=== PATIENT | female | born 1965 | race Caucasian/White ===

== ENCOUNTER 2017-10-08 13:12 | Emergency (ER) | payer MEDICAID ==
[~2017-10-08] VITALS: Ht 175.3 cm; Wt 96.0 kg
[~2017-10-08 13:12] MED LIST: ALBU18HF2 IH; ALBU6.7H INH; ALBU8HFA PO; ANTI14DR2 OT; BAC10T PO; BENA1TAB13; BENA1TAB2 PO; CEPH-572 PO; CLIN300C85 PO; CYCL-1 PO; CYCL-35 PO; DIAZ5TAB PO; DICY10CA88 PO; EPIN0.3A2; EPIN0.3P17 IM; GUAI120015 PO; HYDR-569 PO; IBUP-1051 PO; IBUP-1986 PO; LORA0.5T PO; METH-360 PO; NABU500T2 PO; NAPR-1154 PO; NITR100C6 PO; NORCO10T PO; ROBDML PO; TRAZ-91 PO; ZOL50T PO
[2017-10-08 13:16] VITALS: BP 137/83
[2017-10-08] MEDS ORDERED: MELO-102 PO (14:40)
[2017-10-08] MEDS ORDERED: ACET-2971 PO (14:40)
== END 2017-10-08 15:10 | disposition home or self-care (01) ==
LOC: ER 13:12
DX: M25.562 Pain in left knee (principal); E11.42 Type 2 diabetes mellitus with diabetic polyneuropathy; I10 Essential (primary) hypertension; G89.29 Other chronic pain; F12.90 Cannabis use, unspecified, uncomplicated; Z59.0 Homelessness; Z88.2 Allergy status to sulfonamides; Z88.8 Allergy status to other drugs, medicaments and biological substances; Z91.018 Allergy to other foods; Z79.899 Other long term (current) drug therapy; Z90.89 Acquired absence of other organs
CPT/HCPCS: 73564; 99284

== ENCOUNTER 2017-11-03 13:40 | Emergency (ER) | payer MEDICAID ==
[~2017-11-03] VITALS: Ht 172.7 cm; Wt 95.5 kg
[~2017-11-03 13:40] MED LIST changes: +ACET-2971 PO; +MELO-102 PO
[2017-11-03] MEDS ORDERED: CYCL-1 PO (15:24)
[2017-11-03 15:53] VITALS: BP 120/84
== END 2017-11-03 15:55 | disposition home or self-care (01) ==
LOC: ER 13:41
DX: S16.1XXA Strain of muscle, fascia and tendon at neck level, initial encounter (principal); M54.5 Low back pain; I10 Essential (primary) hypertension; E11.42 Type 2 diabetes mellitus with diabetic polyneuropathy; G89.29 Other chronic pain; F12.90 Cannabis use, unspecified, uncomplicated; Z90.89 Acquired absence of other organs; Z98.890 Other specified postprocedural states; Z88.2 Allergy status to sulfonamides; Z88.5 Allergy status to narcotic agent; Z91.018 Allergy to other foods; Z88.8 Allergy status to other drugs, medicaments and biological substances; Z88.1 Allergy status to other antibiotic agents; Z79.899 Other long term (current) drug therapy; Z59.0 Homelessness; W18.30XA Fall on same level, unspecified, initial encounter; Y93.89 Activity, other specified; Y92.89 Other specified places as the place of occurrence of the external cause; Y99.8 Other external cause status
CPT/HCPCS: 72040; 72100; 99284

== ENCOUNTER 2018-02-05 13:36 | Emergency (ER) | payer MEDICAID ==
[~2018-02-05] VITALS: Ht 175.3 cm; Wt 95.5 kg
[~2018-02-05 13:36] MED LIST changes: +HYDR-4383 PO; -HYDR-569 PO
[2018-02-05 13:39] VITALS: BP 147/83
[2018-02-05] MEDS ORDERED: ipratropium/albuterol 3ml nebule NEB ONE (13:55)
[2018-02-05] MEDS ORDERED: FLUT1AER INH (15:07)
[2018-02-05] MEDS ORDERED: ALBU8.5H8 IH (15:07)
== END 2018-02-05 15:16 | disposition home or self-care (01) ==
LOC: ER 13:37
DX: R06.2 Wheezing (principal); F17.200 Nicotine dependence, unspecified, uncomplicated; I10 Essential (primary) hypertension; G89.29 Other chronic pain; F12.90 Cannabis use, unspecified, uncomplicated; E11.42 Type 2 diabetes mellitus with diabetic polyneuropathy; Z88.2 Allergy status to sulfonamides; Z98.890 Other specified postprocedural states; Z59.0 Homelessness; Z88.1 Allergy status to other antibiotic agents; Z88.5 Allergy status to narcotic agent; Z91.018 Allergy to other foods; Z88.8 Allergy status to other drugs, medicaments and biological substances; Z79.2 Long term (current) use of antibiotics; Z79.899 Other long term (current) drug therapy
CPT/HCPCS: 93005; 94640; 94760; 99283

== ENCOUNTER 2018-03-26 13:08 | Emergency (ER) | payer MEDICAID ==
[~2018-03-26] VITALS: Ht 175.3 cm; Wt 100.0 kg
[~2018-03-26 13:08] MED LIST changes: +ALBU8.5H8 IH; +FLUT1AER INH
[2018-03-26 13:10] VITALS: BP 131/73
[2018-03-26] MEDS ORDERED: ketorolac trometh inj. 60 MG/2 ML VIAL IM ONE (14:30)
== END 2018-03-26 14:44 | disposition home or self-care (01) ==
LOC: ER 13:08
DX: M77.11 Lateral epicondylitis, right elbow (principal); I10 Essential (primary) hypertension; G89.29 Other chronic pain; F41.9 Anxiety disorder, unspecified; F32.9 Major depressive disorder, single episode, unspecified; E11.40 Type 2 diabetes mellitus with diabetic neuropathy, unspecified; F12.10 Cannabis abuse, uncomplicated; Z59.0 Homelessness; Z87.440 Personal history of urinary (tract) infections; Z88.2 Allergy status to sulfonamides; Z88.5 Allergy status to narcotic agent; Z88.1 Allergy status to other antibiotic agents; Z91.018 Allergy to other foods
CPT/HCPCS: 73080; 96372; 99283; J1885

== ENCOUNTER 2018-06-07 11:43 | Emergency (ER) | payer MEDICAID ==
[~2018-06-07] VITALS: Ht 175.3 cm; Wt 100.0 kg
[~2018-06-07 11:43] MED LIST changes: +CLIN-96 PO; -CLIN300C85 PO
[2018-06-07 12:35] VITALS: BP 145/85
[2018-06-07] MEDS ORDERED: OMEP40CA37 PO (12:49)
[2018-06-07] MEDS ORDERED: CYCL-1 PO (12:49)
[2018-06-07] MEDS ORDERED: TRAM50TA2 PO (12:49)
[2018-06-07] MEDS ORDERED: ketorolac trometh inj. 60 MG/2 ML VIAL IM ONE (12:50)
[2018-06-07] MEDS ORDERED: cyclobenzaprine 10mg tablet PO ONE (12:50)
== END 2018-06-07 13:37 | disposition home or self-care (01) ==
LOC: ER 11:43
DX: M54.2 Cervicalgia (principal); E11.42 Type 2 diabetes mellitus with diabetic polyneuropathy; I10 Essential (primary) hypertension; G89.29 Other chronic pain; F12.90 Cannabis use, unspecified, uncomplicated; Z90.89 Acquired absence of other organs; Z98.890 Other specified postprocedural states; Z88.2 Allergy status to sulfonamides; Z88.5 Allergy status to narcotic agent; Z91.018 Allergy to other foods; Z88.6 Allergy status to analgesic agent; Z88.1 Allergy status to other antibiotic agents; Z88.8 Allergy status to other drugs, medicaments and biological substances; Z79.899 Other long term (current) drug therapy; Z59.0 Homelessness; X50.1XXA Overexertion from prolonged static or awkward postures, initial encounter; Y93.89 Activity, other specified; Y92.89 Other specified places as the place of occurrence of the external cause; Y99.8 Other external cause status
CPT/HCPCS: 93005; 96372; 99283; J1885

== ENCOUNTER 2018-11-26 11:56 | Emergency (ER) | payer MEDICAID ==
[~2018-11-26] VITALS: Ht 175.3 cm; Wt 96.3 kg
[~2018-11-26 11:56] MED LIST changes: -ALBU6.7H INH; +ALBU6.7H9 INH; +SERT-153 PO; -ZOL50T PO
[2018-11-26 12:02] VITALS: BP 118/69
[2018-11-26] MEDS ORDERED: LORazepam 2 mg/ml vial IM ONE (12:25)
== END 2018-11-26 13:02 | disposition home or self-care (01) ==
LOC: ER 11:57
DX: F41.9 Anxiety disorder, unspecified (principal); E11.21 Type 2 diabetes mellitus with diabetic nephropathy; I10 Essential (primary) hypertension; G89.29 Other chronic pain; F32.9 Major depressive disorder, single episode, unspecified; F43.10 Post-traumatic stress disorder, unspecified; F12.90 Cannabis use, unspecified, uncomplicated; F10.99 Alcohol use, unspecified with unspecified alcohol-induced disorder; Z98.890 Other specified postprocedural states; Z90.89 Acquired absence of other organs; Z91.018 Allergy to other foods; Z88.2 Allergy status to sulfonamides; Z88.5 Allergy status to narcotic agent; Z88.8 Allergy status to other drugs, medicaments and biological substances; Z88.1 Allergy status to other antibiotic agents; Z79.899 Other long term (current) drug therapy; Y90.9 Presence of alcohol in blood, level not specified
CPT/HCPCS: 96372; 99284; J2060

== ENCOUNTER 2019-02-10 12:39 | Emergency (ER) | payer MEDICAID ==
[~2019-02-10] VITALS: Ht 175.3 cm; Wt 96.0 kg
[~2019-02-10 12:39] MED LIST changes: +CLIN-90 PO; -CLIN-96 PO
[2019-02-10 12:44] VITALS: BP 95/63
[2019-02-10] MEDS ORDERED: ketorolac tromethamine 15mg/ml inj. IM ONE (13:50)
[2019-02-10] MEDS ORDERED: CYCL-1 PO (14:00)
[2019-02-10] MEDS ORDERED: IBUP-1984 PO (14:00)
== END 2019-02-10 14:09 | disposition home or self-care (01) ==
LOC: ER 12:40
DX: M54.5 Low back pain (principal); I10 Essential (primary) hypertension; G89.29 Other chronic pain; E11.42 Type 2 diabetes mellitus with diabetic polyneuropathy; F12.90 Cannabis use, unspecified, uncomplicated; Z90.89 Acquired absence of other organs; Z98.890 Other specified postprocedural states; Z91.018 Allergy to other foods; Z88.2 Allergy status to sulfonamides; Z88.5 Allergy status to narcotic agent; Z88.6 Allergy status to analgesic agent; Z88.1 Allergy status to other antibiotic agents
CPT/HCPCS: 96372; 99283; J1885

== ENCOUNTER 2019-02-28 13:06 | Emergency (ER) | payer MEDICAID ==
[~2019-02-28] VITALS: Ht 175.3 cm; Wt 96.0 kg
[2019-02-28 13:19] VITALS: BP 123/67
[2019-02-28] MEDS ORDERED: ketorolac tromethamine 15mg/ml inj. IM ONE (13:55)
[2019-02-28] MEDS ORDERED: IBUP-1984 PO (14:11)
[2019-02-28] MEDS ORDERED: CYCL-1 PO (14:11)
== END 2019-02-28 14:30 | disposition home or self-care (01) ==
LOC: ER 13:07
DX: M54.5 Low back pain (principal); E11.42 Type 2 diabetes mellitus with diabetic polyneuropathy; I10 Essential (primary) hypertension; G89.29 Other chronic pain; F41.9 Anxiety disorder, unspecified; F32.9 Major depressive disorder, single episode, unspecified; F12.90 Cannabis use, unspecified, uncomplicated; Z98.890 Other specified postprocedural states; Z91.018 Allergy to other foods; Z88.2 Allergy status to sulfonamides; Z88.5 Allergy status to narcotic agent; Z88.1 Allergy status to other antibiotic agents; Z88.8 Allergy status to other drugs, medicaments and biological substances; Z79.2 Long term (current) use of antibiotics; Z79.899 Other long term (current) drug therapy
CPT/HCPCS: 96372; 99283; J1885

== ENCOUNTER 2019-03-27 11:12 | Emergency (ER) | payer MEDICAID ==
[~2019-03-27] VITALS: Ht 175.3 cm; Wt 95.5 kg
[2019-03-27 11:26] VITALS: BP 116/64
[2019-03-27] MEDS ORDERED: ketorolac tromethamine 15mg/ml inj. IM ONE (12:40)
== END 2019-03-27 13:07 | disposition home or self-care (01) ==
LOC: ER 11:12
DX: S92.811A Other fracture of right foot, initial encounter for closed fracture (principal); I10 Essential (primary) hypertension; E11.42 Type 2 diabetes mellitus with diabetic polyneuropathy; G89.29 Other chronic pain; F41.9 Anxiety disorder, unspecified; F32.9 Major depressive disorder, single episode, unspecified; F10.99 Alcohol use, unspecified with unspecified alcohol-induced disorder; F12.90 Cannabis use, unspecified, uncomplicated; Z98.890 Other specified postprocedural states; Z90.89 Acquired absence of other organs; Z88.2 Allergy status to sulfonamides; Z88.5 Allergy status to narcotic agent; Z88.1 Allergy status to other antibiotic agents; Z88.6 Allergy status to analgesic agent; Z88.8 Allergy status to other drugs, medicaments and biological substances; Z91.018 Allergy to other foods; Z79.899 Other long term (current) drug therapy; X58.XXXA Exposure to other specified factors, initial encounter; Y93.89 Activity, other specified; Y92.89 Other specified places as the place of occurrence of the external cause; Y99.8 Other external cause status; Y90.9 Presence of alcohol in blood, level not specified
CPT/HCPCS: 73630; 96372; 99283; J1885

== ENCOUNTER 2019-09-01 13:10 | Emergency (ER) | payer MEDICAID ==
[~2019-09-01] VITALS: Ht 175.3 cm; Wt 101.0 kg
[~2019-09-01 13:10] MED LIST changes: -CLIN-90 PO; +CLIN-97 PO
[2019-09-01 13:46] LABS: BASOPHILS # (AUTO) 0.1 X10'3 (0-0.2); BASOPHILS % (AUTO) 0.6 % (0-1); EOSINOPHILS # (AUTO) 0.3 X10'3 (0-0.9); EOSINOPHILS % (AUTO) 3.4 % (0-6); HEMATOCRIT 42.7 % (35.0-45.0); HEMOGLOBIN 14.5 g/dl (12.0-16.0); LYMPHOCYTES # (AUTO) 2.7 X10'3 (1.1-4.8); LYMPHOCYTES % (AUTO) 33.8 % (21-51); MEAN CORPUSCULAR HEMOGLOBIN 31.5 PG (27.0-31.0); MEAN CORPUSCULAR HGB CONC 33.9 g/dL (33.0-36.5); MEAN CORPUSCULAR VOLUME 92.9 FL (78-98); MEAN PLATELET VOLUME 8.9 FL (7.4-10.4); MONOCYTES # (AUTO) 0.6 X10'3 (0-0.9); MONOCYTES % (AUTO) 7.1 % (2-12); NEUTROPHILS # (AUTO) 4.4 X10'3 (1.8-7.7); NEUTROPHILS % (AUTO) 55.1 % (42-75); PLATELET COUNT 225 X10'3 (140-440); RED CELL DISTRIBUTION WIDTH 13.9 % (11.5-14.5); WHITE BLOOD COUNT 8.1 X10'3 (4.5-11.0)
[2019-09-01 14:00] LABS: ALANINE AMINOTRANSFERASE 55 U/L (12-78); ALBUMIN 3.8 G/DL (3.4-5.0); ALKALINE PHOSPHATASE 78 IU/L (46-116); ANION GAP 8 (8-16); ASPARTATE AMINO TRANSFERASE 32 U/L (10-37); BILIRUBIN,TOTAL 0.4 MG/DL (0.1-1.0); BLOOD UREA NITROGEN 9 MG/DL (7-18); BUN/CREATININE RATIO 8.5 (6.6-38.0); CALCIUM 9.1 MG/DL (8.5-10.1); CHLORIDE 104 MMOL/L (99-107); CREATININE 1.06 MG/DL (0.40-0.90); GLUCOSE 129 MG/DL (70-104); LIPASE 121 U/L (73-393); POTASSIUM 4.2 MMOL/L (3.5-5.1); SODIUM 140 MMOL/L (135-145); TOTAL CARBON DIOXIDE 27.6 MMOL/L (24-32); TOTAL PROTEIN 7.5 G/DL (6.4-8.2); eGFR 54 ML/MIN
[2019-09-01 14:56] LABS: CLARITY,URINE CLEAR (Clear); COLOR,URINE STRAW (Yellow); GLUCOSE, URINE NEGATIVE (Neg); KETONES,URINE NEGATIVE (Neg); LEUKOCYTE ESTERASE ,URINE TRACE (Neg); NITRITES, URINE NEGATIVE (Neg); OCCULT BLOOD,URINE NEGATIVE (Neg); PROTEIN,URINE NEGATIVE (Neg); URINE HCG NEGATIVE (NEG); UROBILINOGEN,URINE 0.2 E.U/dL (0.2-1.0)
[2019-09-01 14:57] LABS: UA COLLECTION TYPE CLN CATCH MIDSTREAM
[2019-09-01 15:03] LABS: RBC,URINE NONE SEEN /HPF (0-2); WBC,URINE 0-4 /HPF (0-4)
[2019-09-01 15:04] LABS: BACTERIA,URINE FEW /HPF (Neg); MUCUS STRANDS NONE SEEN /LPF (Neg); SQUAMOUS EPITHELIAL CELL,UR MODERATE /LPF (FEW)
[2019-09-01 16:01] VITALS: BP 134/80
== END 2019-09-01 16:03 | disposition home or self-care (01) ==
LOC: ER 13:11
DX: R10.32 Left lower quadrant pain (principal); R11.0 Nausea; E11.42 Type 2 diabetes mellitus with diabetic polyneuropathy; I10 Essential (primary) hypertension; G89.29 Other chronic pain; F41.9 Anxiety disorder, unspecified; F32.9 Major depressive disorder, single episode, unspecified; F17.200 Nicotine dependence, unspecified, uncomplicated; F12.90 Cannabis use, unspecified, uncomplicated; Z87.01 Personal history of pneumonia (recurrent); Z87.440 Personal history of urinary (tract) infections; Z90.89 Acquired absence of other organs; Z88.6 Allergy status to analgesic agent; Z88.1 Allergy status to other antibiotic agents; Z88.5 Allergy status to narcotic agent; Z88.2 Allergy status to sulfonamides; Z91.018 Allergy to other foods; Z79.2 Long term (current) use of antibiotics; Z79.899 Other long term (current) drug therapy
CPT/HCPCS: 36415; 74176; 80053; 81001; 81025; 83690; 85025; 87088; 99284

== ENCOUNTER 2019-12-04 11:14 | Emergency (ER) | payer MEDICAID ==
[~2019-12-04] VITALS: Ht 175.3 cm; Wt 96.0 kg
[2019-12-04] MEDS ORDERED: ketorolac trometh inj. 60 MG/2 ML VIAL IM ONE (13:00)
[2019-12-04] MEDS ORDERED: DICL100G15 TOP (13:32)
[2019-12-04] MEDS ORDERED: CYCL-1 PO (13:32)
[2019-12-04 13:46] VITALS: BP 118/79
== END 2019-12-04 13:48 | disposition home or self-care (01) ==
LOC: ER 11:15
DX: M75.31 Calcific tendinitis of right shoulder (principal); E11.42 Type 2 diabetes mellitus with diabetic polyneuropathy; I10 Essential (primary) hypertension; G89.29 Other chronic pain; F41.9 Anxiety disorder, unspecified; F32.9 Major depressive disorder, single episode, unspecified; F12.90 Cannabis use, unspecified, uncomplicated; Z90.89 Acquired absence of other organs; Z98.890 Other specified postprocedural states; Z91.018 Allergy to other foods; Z88.2 Allergy status to sulfonamides; Z88.5 Allergy status to narcotic agent; Z88.1 Allergy status to other antibiotic agents; Z88.8 Allergy status to other drugs, medicaments and biological substances; Z79.899 Other long term (current) drug therapy; X50.1XXA Overexertion from prolonged static or awkward postures, initial encounter; Y93.89 Activity, other specified; Y92.89 Other specified places as the place of occurrence of the external cause; Y99.8 Other external cause status
CPT/HCPCS: 73030; 93005; 96372; 99283; J1885

== ENCOUNTER 2020-12-17 19:31 | Emergency (ER) | payer MEDICAID ==
[~2020-12-17 19:31] MED LIST changes: +ALBU8.5H17 IH; -ALBU8.5H8 IH; +DICL100G15 TOP; +NABU-139 PO; -NABU500T2 PO
[2020-12-18] MEDS ORDERED: ONDA4TAB12 PO (22:22)
== END 2020-12-17 20:55 | disposition left against medical advice (07) ==
LOC: ER 19:32
DX: N23 Unspecified renal colic (principal); Z53.21 Procedure and treatment not carried out due to patient leaving prior to being seen by health care provider

== ENCOUNTER 2020-12-18 19:41 | Emergency (ER) | payer MEDICAID ==
[~2020-12-18] VITALS: Ht 175.3 cm; Wt 103.6 kg
[2020-12-18 20:39] VITALS: BP 164/103
[2020-12-18 20:39] LABS: BASOPHILS % (AUTO) 0.2 % (0-1); EOSINOPHILS # (AUTO) 0.1 X10'3 (0-0.9); EOSINOPHILS % (AUTO) 1.3 % (0-6); HEMATOCRIT 42.9 % (35.0-45.0); HEMOGLOBIN 14.9 g/dl (12.0-16.0); LYMPHOCYTES # (AUTO) 1.6 X10'3 (1.1-4.8); LYMPHOCYTES % (AUTO) 17.9 % (21-51); MEAN CORPUSCULAR HEMOGLOBIN 32.4 PG (27.0-31.0); MEAN CORPUSCULAR HGB CONC 34.8 g/dL (33.0-36.5); MEAN CORPUSCULAR VOLUME 92.9 FL (78-98); MONOCYTES # (AUTO) 0.7 X10'3 (0-0.9); MONOCYTES % (AUTO) 7.5 % (2-12); NEUTROPHILS # (AUTO) 6.3 X10'3 (1.8-7.7); NEUTROPHILS % (AUTO) 73.1 % (42-75); PLATELET COUNT 249 X10'3 (140-440); RED BLOOD COUNT 4.61 X10'6 (4.20-5.60); WHITE BLOOD COUNT 8.7 X10'3 (4.5-11.0)
[2020-12-18 20:49] LABS: URINE HCG NEGATIVE (NEG)
[2020-12-18 20:57] LABS: ALANINE AMINOTRANSFERASE 73 U/L (12-78); ALBUMIN 3.9 G/DL (3.4-5.0); ALKALINE PHOSPHATASE 81 IU/L (46-116); ANION GAP 9 (8-16); ASPARTATE AMINO TRANSFERASE 42 U/L (10-37); BILIRUBIN,TOTAL 0.9 MG/DL (0.1-1.0); BLOOD UREA NITROGEN 8 MG/DL (7-18); BUN/CREATININE RATIO 8.1 (6.6-38.0); CHLORIDE 89 MMOL/L (99-107); CREATININE 0.99 MG/DL (0.40-0.90); GLUCOSE 141 MG/DL (70-104); LIPASE 59 U/L (73-393); POTASSIUM 3.6 MMOL/L (3.5-5.1); SODIUM 125 MMOL/L (135-145); TOTAL CARBON DIOXIDE 27.1 MMOL/L (24-32); TOTAL PROTEIN 7.9 G/DL (6.4-8.2); eGFR 58 ML/MIN
[2020-12-18 21:12] LABS: CLARITY,URINE SLIGHTLY CLOUDY (Clear); COLOR,URINE YELLOW (Yellow); GLUCOSE, URINE NEGATIVE (Neg); KETONES,URINE 80 mg/dl (Neg); OCCULT BLOOD,URINE NEGATIVE (Neg); PROTEIN,URINE NEGATIVE (Neg); UA COLLECTION TYPE CLN CATCH MIDSTREAM
[2020-12-18 21:13] LABS: LEUKOCYTE ESTERASE ,URINE NEGATIVE (Neg); NITRITES, URINE NEGATIVE (Neg); UROBILINOGEN,URINE 0.2 E.U/dL (0.2-1.0); WBC,URINE 0-4 /HPF (0-4)
[2020-12-18 21:14] LABS: BACTERIA,URINE FEW /HPF (Neg); RBC,URINE 0-2 /HPF (0-2); SQUAMOUS EPITHELIAL CELL,UR MANY /LPF (FEW)
[2020-12-18] MEDS ORDERED: normal saline 1000ML IV soln IVB ONE (21:25)
[2020-12-18] MEDS ORDERED: ondansetron/PF 4mg/2ml inj IV ONE (21:25)
[2020-12-18] MEDS ORDERED: ONDA4TAB12 PO (22:22)
== END 2020-12-18 23:18 | disposition home or self-care (01) ==
LOC: ER 19:42
DX: N23 Unspecified renal colic (principal); E86.0 Dehydration; R11.2 Nausea with vomiting, unspecified; E11.42 Type 2 diabetes mellitus with diabetic polyneuropathy; I10 Essential (primary) hypertension; G89.29 Other chronic pain; F41.9 Anxiety disorder, unspecified; F32.9 Major depressive disorder, single episode, unspecified; F12.90 Cannabis use, unspecified, uncomplicated; F15.90 Other stimulant use, unspecified, uncomplicated; Z87.01 Personal history of pneumonia (recurrent); Z87.440 Personal history of urinary (tract) infections; Z90.89 Acquired absence of other organs; Z98.890 Other specified postprocedural states; Z91.018 Allergy to other foods; Z88.2 Allergy status to sulfonamides; Z88.1 Allergy status to other antibiotic agents; Z88.8 Allergy status to other drugs, medicaments and biological substances; Z88.5 Allergy status to narcotic agent; Z79.899 Other long term (current) drug therapy; Z79.2 Long term (current) use of antibiotics
CPT/HCPCS: 36415; 74176; 80053; 81001; 81025; 83690; 85025; 96374; 99284; J2405; J7030

== ENCOUNTER 2021-03-17 12:29 | Emergency (ER) | payer MEDICAID ==
[~2021-03-17] VITALS: Ht 175.3 cm; Wt 104.5 kg
[~2021-03-17 12:29] MED LIST changes: -BENA1TAB13; +BENA1TAB86; +ONDA4TAB12 PO
[2021-03-17 13:15] VITALS: BP 105/65
[2021-03-17] MEDS ORDERED: ketorolac trometh. 30mg/ml inj. IM ONE (16:50)
== END 2021-03-17 17:15 | disposition home or self-care (01) ==
LOC: ER 12:30
DX: M79.672 Pain in left foot (principal); R07.89 Other chest pain; G89.29 Other chronic pain; E11.42 Type 2 diabetes mellitus with diabetic polyneuropathy; I10 Essential (primary) hypertension; F41.9 Anxiety disorder, unspecified; F32.9 Major depressive disorder, single episode, unspecified; F12.90 Cannabis use, unspecified, uncomplicated; F15.90 Other stimulant use, unspecified, uncomplicated; Z87.01 Personal history of pneumonia (recurrent); Z87.440 Personal history of urinary (tract) infections; Z90.89 Acquired absence of other organs; Z98.890 Other specified postprocedural states; Z88.5 Allergy status to narcotic agent; Z88.2 Allergy status to sulfonamides; Z88.8 Allergy status to other drugs, medicaments and biological substances; Z88.6 Allergy status to analgesic agent; Z91.018 Allergy to other foods; Z79.2 Long term (current) use of antibiotics; Z79.899 Other long term (current) drug therapy
CPT/HCPCS: 73630; 84484; 93005; 96372; 99285; J1885

== ENCOUNTER 2021-06-19 20:14 | Emergency (ER) | payer MEDICAID ==
[~2021-06-19] VITALS: Ht 175.3 cm; Wt 105.5 kg
[2021-06-19 20:29] VITALS: BP 147/92
[2021-06-19] MEDS ORDERED: orphenadrine citrate 60mg/2ml inj. IM ONE (21:30)
[2021-06-19] MEDS ORDERED: ketorolac trometh. 30mg/ml inj. IM ONE (21:30)
--- NOTE | 2021-06-19 21:47 | NUR ---
TORLASHAWN VERFIFIED WITH DAMION LABOY.
[2021-06-19] MEDS ORDERED: CYCL-1 PO (22:10)
== END 2021-06-19 22:23 | disposition home or self-care (01) ==
LOC: ER 20:15
DX: S30.811A Abrasion of abdominal wall, initial encounter (principal); R07.81 Pleurodynia; I10 Essential (primary) hypertension; E11.9 Type 2 diabetes mellitus without complications; G89.29 Other chronic pain; F41.9 Anxiety disorder, unspecified; F32.A Depression, unspecified; F12.90 Cannabis use, unspecified, uncomplicated; F15.90 Other stimulant use, unspecified, uncomplicated; Z87.01 Personal history of pneumonia (recurrent); Z87.440 Personal history of urinary (tract) infections; Z90.89 Acquired absence of other organs; Z98.890 Other specified postprocedural states; Z88.2 Allergy status to sulfonamides; Z88.5 Allergy status to narcotic agent; Z88.1 Allergy status to other antibiotic agents; Z88.6 Allergy status to analgesic agent; Z88.8 Allergy status to other drugs, medicaments and biological substances; Z79.2 Long term (current) use of antibiotics; Z79.899 Other long term (current) drug therapy; W19.XXXA Unspecified fall, initial encounter; Y93.89 Activity, other specified; Y92.89 Other specified places as the place of occurrence of the external cause; Y99.8 Other external cause status
CPT/HCPCS: 71046; 96372; 99284; J1885; J2360

== ENCOUNTER → 2021-07-26 | Emergency (ER) | payer MEDICAID ==
[~2021-07-26] VITALS: Ht 175.3 cm; Wt 104.5 kg
[~2021-07-26] MED LIST changes: +AMOX-100 PO; +acetaminophen 325mg tablet PO ONE; +amoxicillin 250mg capsule PO ONE
[2021-07-26 16:28] VITALS: BP 161/79
== END | disposition home or self-care (01) ==
LOC: ER 16:27
DX: K08.89 Other specified disorders of teeth and supporting structures (principal); R50.9 Fever, unspecified; K04.7 Periapical abscess without sinus; R59.9 Enlarged lymph nodes, unspecified; E11.43 Type 2 diabetes mellitus with diabetic autonomic (poly)neuropathy; I10 Essential (primary) hypertension; G89.29 Other chronic pain; F12.90 Cannabis use, unspecified, uncomplicated; F15.90 Other stimulant use, unspecified, uncomplicated; Z87.01 Personal history of pneumonia (recurrent); Z87.440 Personal history of urinary (tract) infections; Z88.2 Allergy status to sulfonamides; Z88.1 Allergy status to other antibiotic agents; Z88.8 Allergy status to other drugs, medicaments and biological substances; Z91.018 Allergy to other foods; Z79.2 Long term (current) use of antibiotics; Z79.899 Other long term (current) drug therapy
CPT/HCPCS: 99283

== ENCOUNTER 2022-04-18 07:29 | Emergency (ER) | payer MEDICAID ==
[~2022-04-18] VITALS: Ht 175.3 cm; Wt 100.0 kg
[~2022-04-18 07:29] MED LIST changes: +ALBU6.7H14 INH; -ALBU6.7H9 INH; -AMOX-100 PO; -acetaminophen 325mg tablet PO ONE; -amoxicillin 250mg capsule PO ONE
[2022-04-18] MEDS ORDERED: AMIT50TA15 PO (08:54)
[2022-04-18] MEDS ORDERED: ORPH100T2 PO (08:54)
[2022-04-18] MEDS ORDERED: orphenadrine citrate 60mg/2ml inj. IM ONE (08:55)
[2022-04-18] MEDS ORDERED: ketorolac trometh inj. 60 MG/2 ML VIAL IM ONE (08:55)
[2022-04-18 09:31] VITALS: BP 155/70
== END 2022-04-18 09:33 | disposition home or self-care (01) ==
LOC: ER 07:30
DX: M54.42 Lumbago with sciatica, left side (principal); M54.41 Lumbago with sciatica, right side; G89.29 Other chronic pain; R25.2 Cramp and spasm; E11.42 Type 2 diabetes mellitus with diabetic polyneuropathy; I10 Essential (primary) hypertension; F41.9 Anxiety disorder, unspecified; F32.A Depression, unspecified; F12.90 Cannabis use, unspecified, uncomplicated; F15.90 Other stimulant use, unspecified, uncomplicated; Z87.01 Personal history of pneumonia (recurrent); Z87.440 Personal history of urinary (tract) infections; Z88.2 Allergy status to sulfonamides; Z88.5 Allergy status to narcotic agent; Z88.0 Allergy status to penicillin; Z88.8 Allergy status to other drugs, medicaments and biological substances; Z79.2 Long term (current) use of antibiotics; Z79.899 Other long term (current) drug therapy
CPT/HCPCS: 96372; 99284; J1885; J2360

== ENCOUNTER 2022-04-27 14:53 | Emergency (ER) | payer MEDICAID ==
[~2022-04-27] VITALS: Ht 175.3 cm; Wt 100.0 kg
[~2022-04-27 14:53] MED LIST changes: +ORPH100T2 PO
[2022-04-27 15:25] VITALS: BP 168/97
[2022-04-27] MEDS ORDERED: ketorolac trometh. 30mg/ml inj. IV ONE ×2 (17:10→17:15)
[2022-04-27] MEDS ORDERED: orphenadrine citrate 60mg/2ml inj. IM ONE (17:10)
[2022-04-27] MEDS ORDERED: BACL-11 PO (17:23)
[2022-04-27] MEDS ORDERED: AMIT50TA15 PO (17:23)
[2022-04-27] MEDS ORDERED: ketorolac trometh. 30mg/ml inj. IM ONE (17:35)
== END 2022-04-27 18:07 | disposition home or self-care (01) ==
LOC: ER 14:54
DX: M54.50 Low back pain, unspecified (principal); I10 Essential (primary) hypertension; J20.9 Acute bronchitis, unspecified; E11.9 Type 2 diabetes mellitus without complications; G89.29 Other chronic pain; F12.90 Cannabis use, unspecified, uncomplicated; F15.20 Other stimulant dependence, uncomplicated; Z91.018 Allergy to other foods; Z88.2 Allergy status to sulfonamides; Z88.1 Allergy status to other antibiotic agents; Z88.0 Allergy status to penicillin; Z88.5 Allergy status to narcotic agent; Z91.041 Radiographic dye allergy status; Z88.4 Allergy status to anesthetic agent
CPT/HCPCS: 96372; 99283; J1885

== ENCOUNTER 2022-05-07 09:00 | Emergency (ER) | payer MEDICAID ==
[~2022-05-07] VITALS: Ht 175.3 cm; Wt 102.3 kg
[~2022-05-07 09:00] MED LIST changes: +BACL-11 PO
[2022-05-07 10:32] LABS: BASOPHILS % (AUTO) 0.6 % (0-1); EOSINOPHILS # (AUTO) 0.3 X10'3 (0-0.9); HEMATOCRIT 40.1 % (35.0-45.0); HEMOGLOBIN 13.7 g/dl (12.0-16.0); LYMPHOCYTES # (AUTO) 2.5 X10'3 (1.1-4.8); LYMPHOCYTES % (AUTO) 37.8 % (21-51); MEAN CORPUSCULAR HEMOGLOBIN 31.5 PG (27.0-31.0); MEAN CORPUSCULAR HGB CONC 34.2 g/dL (33.0-36.5); MEAN PLATELET VOLUME 8.5 FL (7.4-10.4); MONOCYTES # (AUTO) 0.6 X10'3 (0-0.9); MONOCYTES % (AUTO) 9.2 % (2-12); NEUTROPHILS # (AUTO) 3.1 X10'3 (1.8-7.7); NEUTROPHILS % (AUTO) 47.4 % (42-75); PLATELET COUNT 233 X10'3 (140-440); RED BLOOD COUNT 4.36 X10'6 (4.20-5.60); RED CELL DISTRIBUTION WIDTH 13.4 % (11.5-14.5); WHITE BLOOD COUNT 6.5 X10'3 (4.5-11.0)
[2022-05-07 10:40] LABS: ALANINE AMINOTRANSFERASE 32 U/L (12-78); ALBUMIN 3.7 G/DL (3.4-5.0); ALKALINE PHOSPHATASE 83 IU/L (46-116); ANION GAP 6 (8-16); ASPARTATE AMINO TRANSFERASE 17 U/L (10-37); BILIRUBIN,TOTAL 0.4 MG/DL (0.1-1.0); BLOOD UREA NITROGEN 17 MG/DL (7-18); BUN/CREATININE RATIO 17.3 (6.6-38.0); CALCIUM 9.2 MG/DL (8.5-10.1); CHLORIDE 96 MMOL/L (99-107); CREATININE 0.98 MG/DL (0.40-0.90); GLUCOSE 156 MG/DL (70-104); POTASSIUM 4.4 MMOL/L (3.5-5.1); SODIUM 130 MMOL/L (135-145); TOTAL CARBON DIOXIDE 28.2 MMOL/L (24-32); TOTAL PROTEIN 7.3 G/DL (6.4-8.2); eGFR 59 ML/MIN
--- NOTE | 2022-05-07 10:45 | NUR ---
WILLEM FROM MRI CALLED TO INFORM US THAT OUR MRI MACHINE IS DOWN TILL Monday05/10/2022. POSSIBLE TRANSFER TO [facility] FOR MRI.
[2022-05-07 11:51] VITALS: BP 122/80
== END 2022-05-07 12:29 | disposition left against medical advice (07) ==
LOC: ER 09:01
DX: M54.50 Low back pain, unspecified (principal); Z20.822 Contact with and (suspected) exposure to COVID-19; I10 Essential (primary) hypertension; E11.9 Type 2 diabetes mellitus without complications; G89.29 Other chronic pain; F12.90 Cannabis use, unspecified, uncomplicated; F15.20 Other stimulant dependence, uncomplicated; Z91.018 Allergy to other foods; Z88.1 Allergy status to other antibiotic agents; Z88.2 Allergy status to sulfonamides
CPT/HCPCS: 36415; 80053; 85025; 87811; 99283

== ENCOUNTER 2022-08-08 13:55 | Emergency (ER) | payer MEDICAID ==
[~2022-08-08] VITALS: Ht 175.3 cm; Wt 96.0 kg
[~2022-08-08 13:55] MED LIST changes: -ORPH100T2 PO; +ORPH100T4 PO
[2022-08-08 13:59] VITALS: BP 119/71
[2022-08-08 14:23] LABS: CLARITY,URINE CLEAR (Clear); COLOR,URINE STRAW (Yellow); GLUCOSE, URINE NEGATIVE (Neg); KETONES,URINE NEGATIVE (Neg); LEUKOCYTE ESTERASE ,URINE NEGATIVE (Neg); NITRITES, URINE NEGATIVE (Neg); OCCULT BLOOD,URINE NEGATIVE (Neg); PROTEIN,URINE NEGATIVE (Neg); UROBILINOGEN,URINE 0.2 E.U/dL (0.2-1.0)
[2022-08-08 14:25] LABS: UA COLLECTION TYPE CLN CATCH MIDSTREAM
[2022-08-08 14:29] LABS: BASOPHILS # (AUTO) 0.1 X10'3 (0-0.2); BASOPHILS % (AUTO) 0.7 % (0-1); EOSINOPHILS # (AUTO) 0.3 X10'3 (0-0.9); EOSINOPHILS % (AUTO) 3.4 % (0-6); HEMATOCRIT 41.5 % (35.0-45.0); LYMPHOCYTES # (AUTO) 3.6 X10'3 (1.1-4.8); LYMPHOCYTES % (AUTO) 36.7 % (21-51); MEAN CORPUSCULAR HEMOGLOBIN 31.6 PG (27.0-31.0); MEAN CORPUSCULAR HGB CONC 33.8 g/dL (33.0-36.5); MEAN CORPUSCULAR VOLUME 93.6 FL (78-98); MEAN PLATELET VOLUME 8.6 FL (7.4-10.4); MONOCYTES # (AUTO) 0.9 X10'3 (0-0.9); MONOCYTES % (AUTO) 9.4 % (2-12); NEUTROPHILS # (AUTO) 4.8 X10'3 (1.8-7.7); NEUTROPHILS % (AUTO) 49.8 % (42-75); PLATELET COUNT 254 X10'3 (140-440); RED BLOOD COUNT 4.44 X10'6 (4.20-5.60); RED CELL DISTRIBUTION WIDTH 13.5 % (11.5-14.5); WHITE BLOOD COUNT 9.7 X10'3 (4.5-11.0)
[2022-08-08 14:38] LABS: ALANINE AMINOTRANSFERASE 46 U/L (12-78); ALBUMIN 3.7 G/DL (3.4-5.0); ALKALINE PHOSPHATASE 80 IU/L (46-116); ANION GAP 9 (8-16); ASPARTATE AMINO TRANSFERASE 25 U/L (10-37); BILIRUBIN,TOTAL 0.3 MG/DL (0.1-1.0); BLOOD UREA NITROGEN 11 MG/DL (7-18); BUN/CREATININE RATIO 12.2 (10.0-20.0); CALCIUM 9.2 MG/DL (8.5-10.1); CHLORIDE 100 MMOL/L (99-107); GLUCOSE 100 MG/DL (70-104); LIPASE 77 U/L (73-393); POTASSIUM 4.1 MMOL/L (3.5-5.1); SODIUM 137 MMOL/L (135-145); TOTAL CARBON DIOXIDE 27.7 MMOL/L (24-32); TOTAL PROTEIN 7.3 G/DL (6.4-8.2); eGFR 65 ML/MIN
== END 2022-08-08 16:09 | disposition left against medical advice (07) ==
LOC: ER 13:55
DX: R10.9 Unspecified abdominal pain (principal); Z53.21 Procedure and treatment not carried out due to patient leaving prior to being seen by health care provider
CPT/HCPCS: 36415; 80053; 81003; 83690; 85025; 99281

== ENCOUNTER 2022-09-24 11:05 | Emergency (ER) | payer MEDICAID ==
[~2022-09-24] VITALS: Ht 175.3 cm; Wt 88.4 kg
[2022-09-24 11:22] VITALS: BP 170/92
== END 2022-09-24 15:08 | disposition left against medical advice (07) ==
LOC: ER 11:06
DX: R22.31 Localized swelling, mass and lump, right upper limb (principal); Z53.21 Procedure and treatment not carried out due to patient leaving prior to being seen by health care provider
CPT/HCPCS: 99281

== ENCOUNTER 2022-09-29 08:34 | Emergency (ER) | payer MEDICAID ==
[~2022-09-29] VITALS: Ht 175.3 cm; Wt 90.9 kg
[2022-09-29] MEDS ORDERED: dexamethasone sod phosphate 10mg/ml inj IV STA (09:09)
[2022-09-29 09:34] LABS: BASOPHILS % (AUTO) 0.3 % (0-1); EOSINOPHILS # (AUTO) 0.2 X10'3 (0-0.9); EOSINOPHILS % (AUTO) 1.6 % (0-6); HEMATOCRIT 40.8 % (35.0-45.0); HEMOGLOBIN 13.8 g/dl (12.0-16.0); LYMPHOCYTES # (AUTO) 2.8 X10'3 (1.1-4.8); LYMPHOCYTES % (AUTO) 21.1 % (21-51); MEAN CORPUSCULAR HEMOGLOBIN 31.2 PG (27.0-31.0); MEAN CORPUSCULAR HGB CONC 33.9 g/dL (33.0-36.5); MEAN PLATELET VOLUME 8.8 FL (7.4-10.4); MONOCYTES # (AUTO) 1.2 X10'3 (0-0.9); NEUTROPHILS # (AUTO) 9.1 X10'3 (1.8-7.7); PLATELET COUNT 275 X10'3 (140-440); RED BLOOD COUNT 4.43 X10'6 (4.20-5.60); RED CELL DISTRIBUTION WIDTH 12.9 % (11.5-14.5); WHITE BLOOD COUNT 13.4 X10'3 (4.5-11.0)
[2022-09-29 09:42] LABS: ALANINE AMINOTRANSFERASE 29 U/L (12-78); ALBUMIN 3.9 G/DL (3.4-5.0); ALBUMIN/GLOBULIN RATIO 0.9 (1.1-1.5); ALKALINE PHOSPHATASE 74 IU/L (46-116); ANION GAP 12 (8-16); ASPARTATE AMINO TRANSFERASE 22 U/L (10-37); BILIRUBIN,TOTAL 0.7 MG/DL (0.1-1.0); BLOOD UREA NITROGEN 19 MG/DL (7-18); BUN/CREATININE RATIO 18.3 (10.0-20.0); CALCIUM 9.7 MG/DL (8.5-10.1); CHLORIDE 100 MMOL/L (99-107); CREATININE 1.04 MG/DL (0.40-0.90); GLUCOSE 129 MG/DL (70-104); POTASSIUM 4.3 MMOL/L (3.5-5.1); SODIUM 138 MMOL/L (135-145); TOTAL PROTEIN 8.2 G/DL (6.4-8.2); eGFR 55 ML/MIN
[2022-09-29] MEDS ORDERED: iohexol 300mg/ml 100ml inj. ONE (09:50)
[2022-09-29 10:46] VITALS: BP 155/84
--- NOTE | 2022-09-29 11:32 | NUR ---
KURT Allen was notified about +strep throat culture result
[2022-09-29] MEDS ORDERED: CEPH-585 PO (11:50)
[2022-09-29] MEDS ORDERED: CefTRIAXone 1000mg IM Kit (w/lidocaine diluent) IM ONE (11:50)
== END 2022-09-29 12:49 | disposition home or self-care (01) ==
LOC: ER 08:34
DX: J02.0 Streptococcal pharyngitis (principal); I10 Essential (primary) hypertension; E11.9 Type 2 diabetes mellitus without complications; F12.90 Cannabis use, unspecified, uncomplicated; F15.20 Other stimulant dependence, uncomplicated; Z91.018 Allergy to other foods; Z88.2 Allergy status to sulfonamides; Z88.8 Allergy status to other drugs, medicaments and biological substances; Z88.0 Allergy status to penicillin; Z91.041 Radiographic dye allergy status
CPT/HCPCS: 36415; 70491; 80053; 84145; 85025; 87880; 96372; 96374; 99285; J0696; J1100; J3490; Q9967

== ENCOUNTER 2022-10-01 14:26 | Emergency (ER) | payer MEDICAID ==
[~2022-10-01] VITALS: Ht 175.3 cm; Wt 90.0 kg
[~2022-10-01 14:26] MED LIST changes: +CEPH-585 PO
[2022-10-01 15:05] VITALS: BP 115/73
[2022-10-01] MEDS ORDERED: LIDO15SO3 PO (16:11)
[2022-10-01] MEDS ORDERED: CLIN-97 PO (16:11)
[2022-10-01] MEDS ORDERED: LIDOcaine Viscous 15ml cup MM ONE (20:00)
[2022-10-02] MEDS ORDERED: LIDO15SO3 PO (20:18)
== END 2022-10-01 16:25 | disposition home or self-care (01) ==
LOC: ER 14:28
DX: K14.0 Glossitis (principal); E11.42 Type 2 diabetes mellitus with diabetic polyneuropathy; I10 Essential (primary) hypertension; G89.29 Other chronic pain; Z87.440 Personal history of urinary (tract) infections; F12.90 Cannabis use, unspecified, uncomplicated; F15.90 Other stimulant use, unspecified, uncomplicated; Z88.8 Allergy status to other drugs, medicaments and biological substances; Z88.0 Allergy status to penicillin; Z88.1 Allergy status to other antibiotic agents; Z91.018 Allergy to other foods; Z79.899 Other long term (current) drug therapy; Z79.2 Long term (current) use of antibiotics
CPT/HCPCS: 99281; 99283

== ENCOUNTER 2022-10-02 16:02 | Emergency (ER) | payer MEDICAID ==
[~2022-10-02] VITALS: Ht 175.3 cm; Wt 83.6 kg
[~2022-10-02 16:02] MED LIST changes: +LIDO15SO3 PO
[2022-10-02 18:03] VITALS: BP 121/84
[2022-10-02] MEDS: LIDOcaine Viscous 15ml cup MM PRN ×2 (20:03→20:04)
[2022-10-02] MEDS ORDERED: LIDO15SO3 PO (20:18)
== END 2022-10-02 20:26 | disposition home or self-care (01) ==
LOC: ER 16:02
DX: K14.0 Glossitis (principal); I10 Essential (primary) hypertension; F41.9 Anxiety disorder, unspecified; E11.9 Type 2 diabetes mellitus without complications; F17.200 Nicotine dependence, unspecified, uncomplicated; F12.10 Cannabis abuse, uncomplicated; F15.10 Other stimulant abuse, uncomplicated; Z88.2 Allergy status to sulfonamides; Z88.1 Allergy status to other antibiotic agents; Z88.5 Allergy status to narcotic agent; Z88.0 Allergy status to penicillin; Z79.899 Other long term (current) drug therapy; Z91.018 Allergy to other foods
CPT/HCPCS: 99283

== ENCOUNTER 2022-12-09 11:54 | Emergency (ER) | payer MEDICAID ==
[~2022-12-09] VITALS: Ht 175.3 cm; Wt 95.5 kg
[2022-12-09 12:27] VITALS: BP 141/88; PULSE 80; RESP 18; TEMP 98.2; O2SAT 95
[2022-12-09] MEDS ORDERED: NAPR500T6 PO (14:21)
[2022-12-09] MEDS ORDERED: CLIN300C54 PO (14:21)
[2022-12-09] MEDS ORDERED: mupirocin 2% ointment 22GM TP STA (14:44)
== END 2022-12-09 15:18 | disposition home or self-care (01) ==
LOC: ER 11:55
DX: K08.89 Other specified disorders of teeth and supporting structures (principal); I10 Essential (primary) hypertension; G89.29 Other chronic pain; E11.21 Type 2 diabetes mellitus with diabetic nephropathy; F12.90 Cannabis use, unspecified, uncomplicated; F15.90 Other stimulant use, unspecified, uncomplicated; Z91.018 Allergy to other foods; Z88.2 Allergy status to sulfonamides; Z88.0 Allergy status to penicillin; Z88.8 Allergy status to other drugs, medicaments and biological substances; Z88.1 Allergy status to other antibiotic agents; Z79.899 Other long term (current) drug therapy; Z79.2 Long term (current) use of antibiotics
CPT/HCPCS: 99283

== ENCOUNTER 2022-12-27 12:21 | Emergency (ER) | payer MEDICAID ==
[~2022-12-27 12:21] MED LIST changes: +NAPR500T6 PO
== END 2022-12-27 13:42 | disposition left against medical advice (07) ==
LOC: ER 12:22
DX: M25.559 Pain in unspecified hip (principal); Z53.21 Procedure and treatment not carried out due to patient leaving prior to being seen by health care provider

== ENCOUNTER 2023-01-08 10:43 | Emergency (ER) | payer MEDICAID | END 2023-01-08 13:46 | disposition left against medical advice (07) | LOC: ER 10:44 | DX: R10.30 Lower abdominal pain, unspecified (principal); Z53.21 Procedure and treatment not carried out due to patient leaving prior to being seen by health care provider ==

== ENCOUNTER 2023-01-11 03:19 | Emergency (ER) | payer MEDICAID ==
[~2023-01-11] VITALS: Ht 175.3 cm; Wt 89.6 kg
[2023-01-11 06:03] VITALS: BP 117/73; PULSE 78; O2SAT 98
[2023-01-11 06:44] VITALS: RESP 18
--- NOTE | 2023-01-11 06:46 | NUR ---
57 year old female c/o back pain x1 week pt states she went to chiropractor last week and pain is now radiating down back and into legs causing growing pain and numbness in extremeties. XPLVN
[2023-01-11] MEDS ORDERED: OXYC-134 PO ×2 (06:52)
[2023-01-11] MEDS ORDERED: IBUP-2697 PO ×2 (06:52)
[2023-01-11] MEDS ORDERED: ketorolac trometh inj. 60 MG/2 ML VIAL IM ONE (07:15)
[2023-01-11 07:50] VITALS: TEMP 98.3
--- NOTE | 2023-01-11 09:35 | NUR ---
AIR BAG STRIPPER ASSESSMENT REVIEWED, BY ALBERTO RN; APPROVED
[2023-01-11] MEDS ORDERED: IBUP-1984 PO (11:32)
[2023-01-11] MEDS ORDERED: OXYC-145 PO (11:32)
== END 2023-01-11 07:50 | disposition home or self-care (01) ==
LOC: ER 03:20
DX: M54.9 Dorsalgia, unspecified (principal); I11.0 Hypertensive heart disease with heart failure; E11.9 Type 2 diabetes mellitus without complications; F31.9 Bipolar disorder, unspecified; F12.10 Cannabis abuse, uncomplicated; F15.10 Other stimulant abuse, uncomplicated; Z91.040 Latex allergy status; Z88.2 Allergy status to sulfonamides; Z88.5 Allergy status to narcotic agent; Z88.0 Allergy status to penicillin; Z79.899 Other long term (current) drug therapy
CPT/HCPCS: 96372; 99283; J1885

== ENCOUNTER 2023-01-13 03:49 | Emergency (ER) | payer MEDICAID ==
[~2023-01-13] VITALS: Ht 175.3 cm; Wt 93.4 kg
[~2023-01-13 03:49] MED LIST changes: +IBUP-1984 PO; +OXYC-145 PO
[2023-01-13 04:00] VITALS: BP 100/73; PULSE 77; RESP 16; TEMP 98.4; O2SAT 95
[2023-01-13] MEDS ORDERED: ketorolac trometh inj. 60 MG/2 ML VIAL IM ONE (04:50)
[2023-01-13] MEDS ORDERED: oxyCODONE/APAP 10/325mg tablet PO ONE (04:50)
== END 2023-01-13 05:29 | disposition home or self-care (01) ==
LOC: ER 03:50
DX: M54.30 Sciatica, unspecified side (principal); I10 Essential (primary) hypertension; E11.9 Type 2 diabetes mellitus without complications; F12.90 Cannabis use, unspecified, uncomplicated; F15.90 Other stimulant use, unspecified, uncomplicated; Z91.018 Allergy to other foods; Z88.2 Allergy status to sulfonamides; Z88.0 Allergy status to penicillin; Z88.5 Allergy status to narcotic agent; Z91.041 Radiographic dye allergy status; Z79.1 Long term (current) use of non-steroidal anti-inflammatories (NSAID); Z79.899 Other long term (current) drug therapy
CPT/HCPCS: 96372; 99283; J1885

== ENCOUNTER 2023-05-06 13:13 | Emergency (ER) | payer MEDICAID ==
[~2023-05-06] VITALS: Ht 170.2 cm; Wt 96.0 kg
[~2023-05-06 13:13] MED LIST changes: -IBUP-1984 PO
[2023-05-06 13:25] VITALS: BP 182/96; PULSE 84; TEMP 98; O2SAT 94
[2023-05-06] MEDS ORDERED: DOXY100C77 PO (14:17)
[2023-05-06] MEDS: ketorolac trometh. 30mg/ml inj. IV ONE (14:39)
[2023-05-06] MEDS: ketorolac tromethamine 15mg/ml inj. IM ONE (14:45)
[2023-05-06 14:46] VITALS: RESP 17
== END 2023-05-06 14:56 | disposition home or self-care (01) ==
LOC: ER 13:14
DX: K04.7 Periapical abscess without sinus (principal); I10 Essential (primary) hypertension; E11.9 Type 2 diabetes mellitus without complications; F41.9 Anxiety disorder, unspecified; F32.A Depression, unspecified; F12.90 Cannabis use, unspecified, uncomplicated; F15.90 Other stimulant use, unspecified, uncomplicated; Z88.0 Allergy status to penicillin; Z88.2 Allergy status to sulfonamides; Z88.5 Allergy status to narcotic agent; Z88.8 Allergy status to other drugs, medicaments and biological substances; Z79.899 Other long term (current) drug therapy; Z79.2 Long term (current) use of antibiotics
CPT/HCPCS: 96372; 99283; J1885

== ENCOUNTER 2023-05-22 10:29 | Emergency (ER) | payer MEDICAID ==
[~2023-05-22] VITALS: Ht 170.2 cm; Wt 95.9 kg
[2023-05-22 10:32] VITALS: BP 152/9
[2023-05-22] MEDS ORDERED: LEVO-65 PO (11:33)
[2023-05-22 11:41] VITALS: PULSE 67; RESP 14; TEMP 97.1; O2SAT 98
== END 2023-05-22 11:46 | disposition home or self-care (01) ==
LOC: ER 10:29
DX: J02.0 Streptococcal pharyngitis (principal); I10 Essential (primary) hypertension; K21.9 Gastro-esophageal reflux disease without esophagitis; E11.9 Type 2 diabetes mellitus without complications; F12.90 Cannabis use, unspecified, uncomplicated; F15.90 Other stimulant use, unspecified, uncomplicated; Z91.018 Allergy to other foods; Z88.1 Allergy status to other antibiotic agents; Z88.2 Allergy status to sulfonamides; Z88.0 Allergy status to penicillin; Z88.5 Allergy status to narcotic agent; Z91.041 Radiographic dye allergy status; Z79.1 Long term (current) use of non-steroidal anti-inflammatories (NSAID); Z79.899 Other long term (current) drug therapy
CPT/HCPCS: 99283

== ENCOUNTER 2023-06-10 15:03 | Emergency (ER) | payer MEDICAID ==
[~2023-06-10] VITALS: Ht 170.2 cm; Wt 94.8 kg
[~2023-06-10 15:03] MED LIST changes: +LEVO-65 PO
[2023-06-10 15:04] VITALS: BP 152/79; PULSE 93; TEMP 98; O2SAT 97
[2023-06-10 15:18] VITALS: RESP 18
== END 2023-06-10 16:25 | disposition home or self-care (01) ==
LOC: ER 15:04
DX: S06.0X0A Concussion without loss of consciousness, initial encounter (principal); S00.532A Contusion of oral cavity, initial encounter; I11.0 Hypertensive heart disease with heart failure; E11.9 Type 2 diabetes mellitus without complications; F31.9 Bipolar disorder, unspecified; G89.29 Other chronic pain; M54.9 Dorsalgia, unspecified; K21.9 Gastro-esophageal reflux disease without esophagitis; F12.10 Cannabis abuse, uncomplicated; F15.10 Other stimulant abuse, uncomplicated; Z88.0 Allergy status to penicillin; Z88.5 Allergy status to narcotic agent; Z88.6 Allergy status to analgesic agent; Z91.018 Allergy to other foods; Z88.2 Allergy status to sulfonamides; Z88.1 Allergy status to other antibiotic agents; Z79.899 Other long term (current) drug therapy; Z79.1 Long term (current) use of non-steroidal anti-inflammatories (NSAID); Z79.2 Long term (current) use of antibiotics; W19.XXXA Unspecified fall, initial encounter; Y93.89 Activity, other specified; Y92.89 Other specified places as the place of occurrence of the external cause; Y99.8 Other external cause status
CPT/HCPCS: 70450; 70486; 99284

== ENCOUNTER 2023-06-26 17:53 | Emergency (ER) | payer MEDICAID ==
[~2023-06-26] VITALS: Ht 170.2 cm; Wt 100.0 kg
[~2023-06-26 17:53] MED LIST changes: -LEVO-65 PO; -LIDO15SO3 PO; +LIDO15SO9 PO
[2023-06-26 18:05] VITALS: BP 155/95; PULSE 89; RESP 18; TEMP 98; O2SAT 98
[2023-06-26] MEDS ORDERED: METH-798 PO (19:11)
[2023-06-26] MEDS ORDERED: IBUP-1984 PO (19:11)
[2023-06-26] MEDS: ketorolac tromethamine 15mg/ml inj. IM ONE (19:26)
== END 2023-06-26 19:30 | disposition home or self-care (01) ==
LOC: ER 17:54
DX: S13.4XXA Sprain of ligaments of cervical spine, initial encounter (principal); S33.5XXA Sprain of ligaments of lumbar spine, initial encounter; I10 Essential (primary) hypertension; K21.9 Gastro-esophageal reflux disease without esophagitis; E11.9 Type 2 diabetes mellitus without complications; F12.90 Cannabis use, unspecified, uncomplicated; F15.90 Other stimulant use, unspecified, uncomplicated; Z91.018 Allergy to other foods; Z88.1 Allergy status to other antibiotic agents; Z88.2 Allergy status to sulfonamides; Z88.5 Allergy status to narcotic agent; Z88.0 Allergy status to penicillin; Z91.041 Radiographic dye allergy status; Z79.1 Long term (current) use of non-steroidal anti-inflammatories (NSAID); Z79.2 Long term (current) use of antibiotics; Z79.899 Other long term (current) drug therapy; V89.2XXA Person injured in unspecified motor-vehicle accident, traffic, initial encounter; Y93.89 Activity, other specified; Y92.89 Other specified places as the place of occurrence of the external cause; Y99.8 Other external cause status
CPT/HCPCS: 72040; 72100; 96372; 99284; J1885

== ENCOUNTER 2023-07-09 07:59 | Emergency (ER) | payer MEDICAID ==
[~2023-07-09] VITALS: Ht 170.2 cm; Wt 92.4 kg
[~2023-07-09 07:59] MED LIST changes: +IBUP-1984 PO; +METH-798 PO
[2023-07-09 08:11] VITALS: TEMP 96.9
[2023-07-09 09:11] VITALS: BP 140/48; PULSE 76; RESP 20; O2SAT 98
[2023-07-09] MEDS: LIDOcaine 2% Viscous 15ml cup MM PRN (10:11)
[2023-07-09] MEDS: amoxicillin 250mg capsule PO ONE (10:11)
[2023-07-09 10:33] LABS: STREP A SCREEN NEGATIVE (Neg)
[2023-07-09] MEDS ORDERED: AMOX500C2 PO (10:39)
== END 2023-07-09 10:45 | disposition home or self-care (01) ==
LOC: ER 07:59
DX: J02.0 Streptococcal pharyngitis (principal); I10 Essential (primary) hypertension; K21.9 Gastro-esophageal reflux disease without esophagitis; F12.90 Cannabis use, unspecified, uncomplicated; F15.90 Other stimulant use, unspecified, uncomplicated; Z91.018 Allergy to other foods; Z88.1 Allergy status to other antibiotic agents; Z88.2 Allergy status to sulfonamides; Z88.0 Allergy status to penicillin; Z88.5 Allergy status to narcotic agent; Z91.041 Radiographic dye allergy status; Z79.899 Other long term (current) drug therapy; Z79.1 Long term (current) use of non-steroidal anti-inflammatories (NSAID); Z79.2 Long term (current) use of antibiotics
CPT/HCPCS: 87081; 87880; 99283

== ENCOUNTER 2023-08-06 22:26 | Emergency (ER) | payer MEDICAID ==
[~2023-08-06] VITALS: Ht 170.2 cm; Wt 95.9 kg
[~2023-08-06 22:26] MED LIST changes: -IBUP-1984 PO
[2023-08-06 22:37] VITALS: BP 135/73; PULSE 81; RESP 17; O2SAT 97
[2023-08-07] MEDS ORDERED: POLY119P2 PO (01:10)
[2023-08-07] MEDS: polyethylene glycol 3350 17gm powd pack PO SCH (01:26)
[2023-08-07 01:36] VITALS: TEMP 97.8
[2023-08-07] MEDS ORDERED: GOLYS PO (18:46)
== END 2023-08-07 01:40 | disposition home or self-care (01) ==
LOC: ER 22:26
DX: K59.00 Constipation, unspecified (principal); I10 Essential (primary) hypertension; K21.9 Gastro-esophageal reflux disease without esophagitis; E11.9 Type 2 diabetes mellitus without complications; F15.90 Other stimulant use, unspecified, uncomplicated; F12.90 Cannabis use, unspecified, uncomplicated; Z91.018 Allergy to other foods; Z88.1 Allergy status to other antibiotic agents; Z88.2 Allergy status to sulfonamides; Z88.0 Allergy status to penicillin; Z88.8 Allergy status to other drugs, medicaments and biological substances; Z91.041 Radiographic dye allergy status; Z79.899 Other long term (current) drug therapy; Z79.1 Long term (current) use of non-steroidal anti-inflammatories (NSAID)
CPT/HCPCS: 74019; 99283

== ENCOUNTER 2023-08-07 15:59 | Emergency (ER) | payer MEDICAID ==
[~2023-08-07 15:59] MED LIST changes: +POLY119P2 PO
[2023-08-07 16:23] VITALS: BP 147/79; PULSE 86; RESP 16; TEMP 98.9; O2SAT 98
[2023-08-07] MEDS ORDERED: GOLYS PO (18:46)
== END 2023-08-07 21:02 | disposition home or self-care (01) ==
LOC: ER 16:00
DX: K59.00 Constipation, unspecified (principal); I10 Essential (primary) hypertension; K21.9 Gastro-esophageal reflux disease without esophagitis; E11.9 Type 2 diabetes mellitus without complications; F12.90 Cannabis use, unspecified, uncomplicated; F15.90 Other stimulant use, unspecified, uncomplicated; Z91.018 Allergy to other foods; Z88.1 Allergy status to other antibiotic agents; Z88.2 Allergy status to sulfonamides; Z88.0 Allergy status to penicillin; Z91.041 Radiographic dye allergy status; Z79.899 Other long term (current) drug therapy; Z79.1 Long term (current) use of non-steroidal anti-inflammatories (NSAID)
CPT/HCPCS: 71250; 74176; 99284

== ENCOUNTER 2023-08-08 17:54 | Emergency (ER) | payer MEDICAID ==
[~2023-08-08] VITALS: Ht 170.2 cm; Wt 95.9 kg
[~2023-08-08 17:54] MED LIST changes: +GOLYS PO
[2023-08-08 18:10] VITALS: BP 178/115; PULSE 120; RESP 18; TEMP 97.8; O2SAT 98
[2023-08-08 19:01] LABS: BASOPHILS # (AUTO) 0.1 X10'3 (0-0.2); EOSINOPHILS # (AUTO) 0.1 X10'3 (0-0.9); EOSINOPHILS % (AUTO) 0.8 % (0-6); HEMATOCRIT 42.2 % (35.0-45.0); HEMOGLOBIN 14.3 g/dl (12.0-16.0); LYMPHOCYTES # (AUTO) 3.6 X10'3 (1.1-4.8); LYMPHOCYTES % (AUTO) 39.6 % (21-51); MEAN CORPUSCULAR HEMOGLOBIN 29.9 PG (27.0-31.0); MEAN CORPUSCULAR VOLUME 88.2 FL (78-98); MEAN PLATELET VOLUME 8.7 FL (7.4-10.4); MONOCYTES # (AUTO) 0.6 X10'3 (0-0.9); MONOCYTES % (AUTO) 6.5 % (2-12); NEUTROPHILS # (AUTO) 4.8 X10'3 (1.8-7.7); NEUTROPHILS % (AUTO) 52.1 % (42-75); PLATELET COUNT 328 X10'3 (140-440); RED BLOOD COUNT 4.78 X10'6 (4.20-5.60); WHITE BLOOD COUNT 9.1 X10'3 (4.5-11.0)
[2023-08-08 19:12] LABS: ALANINE AMINOTRANSFERASE 35 U/L (12-78); ALBUMIN 3.6 G/DL (3.4-5.0); ALBUMIN/GLOBULIN RATIO 0.9 (1.1-1.5); ALKALINE PHOSPHATASE 64 IU/L (46-116); ANION GAP 10 (8-16); ASPARTATE AMINO TRANSFERASE 14 U/L (10-37); BILIRUBIN,TOTAL 0.5 MG/DL (0.1-1.0); BLOOD UREA NITROGEN 6 MG/DL (7-18); BUN/CREATININE RATIO 7.7 (10.0-20.0); CALCIUM 9.3 MG/DL (8.5-10.1); CHLORIDE 100 MMOL/L (99-107); CREATININE 0.78 MG/DL (0.40-0.90); GLUCOSE 169 MG/DL (70-104); POTASSIUM 3.3 MMOL/L (3.5-5.1); SODIUM 135 MMOL/L (135-145); TOTAL CARBON DIOXIDE 25.4 MMOL/L (24-32); TOTAL PROTEIN 7.7 G/DL (6.4-8.2); eCRCL 77 ML/MIN; eGFR 76 ML/MIN
== END 2023-08-08 22:40 | disposition left against medical advice (07) ==
LOC: ER 17:55
DX: K59.00 Constipation, unspecified (principal); Z53.21 Procedure and treatment not carried out due to patient leaving prior to being seen by health care provider
CPT/HCPCS: 36415; 74018; 80053; 85025; 99281

== ENCOUNTER 2023-08-31 19:03 | Emergency (ER) | payer MEDICAID ==
[~2023-08-31] VITALS: Ht 170.2 cm; Wt 95.5 kg
[2023-08-31 19:57] LABS: BASOPHILS % (AUTO) 0.5 % (0-1); EOSINOPHILS # (AUTO) 0.1 X10'3 (0-0.9); EOSINOPHILS % (AUTO) 1.5 % (0-6); HEMATOCRIT 40.4 % (35.0-45.0); HEMOGLOBIN 13.7 g/dl (12.0-16.0); LYMPHOCYTES # (AUTO) 1.6 X10'3 (1.1-4.8); LYMPHOCYTES % (AUTO) 33.3 % (21-51); MEAN CORPUSCULAR HEMOGLOBIN 30.1 PG (27.0-31.0); MEAN CORPUSCULAR HGB CONC 33.9 g/dL (33.0-36.5); MEAN PLATELET VOLUME 7.9 FL (7.4-10.4); MONOCYTES # (AUTO) 0.8 X10'3 (0-0.9); MONOCYTES % (AUTO) 15.5 % (2-12); NEUTROPHILS # (AUTO) 2.4 X10'3 (1.8-7.7); NEUTROPHILS % (AUTO) 49.2 % (42-75); PLATELET COUNT 209 X10'3 (140-440); RED BLOOD COUNT 4.55 X10'6 (4.20-5.60); WHITE BLOOD COUNT 4.9 X10'3 (4.5-11.0)
[2023-08-31 20:15] LABS: ALBUMIN 3.5 G/DL (3.4-5.0); ANION GAP 9 (8-16); BLOOD UREA NITROGEN 10 MG/DL (7-18); BUN/CREATININE RATIO 11.6 (10.0-20.0); CHLORIDE 98 MMOL/L (99-107); CREATININE 0.86 MG/DL (0.40-0.90); GLUCOSE 131 MG/DL (70-104); POTASSIUM 3.3 MMOL/L (3.5-5.1); PRO BRAIN NATRIURETIC PEPTIDE 85 PG/ML (0-125); SODIUM 131 MMOL/L (135-145); TOTAL CARBON DIOXIDE 24.4 MMOL/L (24-32); eCRCL 70 ML/MIN; eGFR 68 ML/MIN
[2023-08-31 20:23] LABS: PLATELET ESTIMATE NORMAL; TOTAL CELLS COUNTED 100
[2023-08-31] MEDS: ketorolac tromethamine 15mg/ml inj. IV ONE (23:13)
[2023-08-31 23:37] LABS: ALANINE AMINOTRANSFERASE 30 U/L (12-78); ALBUMIN 3.5 G/DL (3.4-5.0); ALBUMIN/GLOBULIN RATIO 0.9 (1.1-1.5); ALKALINE PHOSPHATASE 77 IU/L (46-116); ANION GAP 9 (8-16); ASPARTATE AMINO TRANSFERASE 18 U/L (10-37); BILIRUBIN,TOTAL 0.5 MG/DL (0.1-1.0); BLOOD UREA NITROGEN 9 MG/DL (7-18); BUN/CREATININE RATIO 10.3 (10.0-20.0); CHLORIDE 100 MMOL/L (99-107); CREATININE 0.87 MG/DL (0.40-0.90); GLUCOSE 104 MG/DL (70-104); POTASSIUM 3.3 MMOL/L (3.5-5.1); SODIUM 133 MMOL/L (135-145); TOTAL PROTEIN 7.2 G/DL (6.4-8.2); eCRCL 69 ML/MIN; eGFR 67 ML/MIN
[2023-08-31 23:40] LABS: MAGNESIUM 1.9 MG/DL (1.5-2.4)
[2023-09-01 01:18] LABS: BILIRUBIN,URINE NEGATIVE (Neg); CLARITY,URINE SLIGHTLY CLOUDY (Clear); COLOR,URINE YELLOW (Yellow); GLUCOSE, URINE NEGATIVE (Neg); KETONES,URINE NEGATIVE (Neg); LEUKOCYTE ESTERASE ,URINE TRACE (Neg); NITRITES, URINE NEGATIVE (Neg); OCCULT BLOOD,URINE NEGATIVE (Neg); PROTEIN,URINE NEGATIVE (Neg); UROBILINOGEN,URINE 0.2 E.U/dL (0.2-1.0)
[2023-09-01 01:20] LABS: UA COLLECTION TYPE VOIDED
[2023-09-01 01:24] LABS: CAL OXALATE CRYSTALS 2+ /HPF (NEGATIVE); MUCUS STRANDS MANY /LPF (Neg); SQUAMOUS EPITHELIAL CELL,UR MANY /LPF (FEW)
[2023-09-01 01:25] LABS: BACTERIA,URINE 1+ /HPF (Neg); RBC,URINE 0-2 /HPF (0-2); TRANSITIONAL EPI CELLS,URINE FEW /HPF
[2023-09-01] MEDS: potassium Cl 20 mEq SR tablet PO STA (01:42)
[2023-09-01] MEDS: acetaminophen 1,000mg/100ml IV 100 ML IV ONE (04:43)
[2023-09-01 07:40] VITALS: TEMP 97.9
[2023-09-01 08:34] VITALS: BP 163/75; PULSE 66; RESP 16; O2SAT 96
== END 2023-09-01 11:42 | disposition hospice, inpatient (51) ==
LOC: ER 19:04
DX: R41.0 Disorientation, unspecified (principal); D33.2 Benign neoplasm of brain, unspecified; R10.9 Unspecified abdominal pain; I10 Essential (primary) hypertension; K21.9 Gastro-esophageal reflux disease without esophagitis; E11.9 Type 2 diabetes mellitus without complications; F12.90 Cannabis use, unspecified, uncomplicated; F15.90 Other stimulant use, unspecified, uncomplicated; Z91.018 Allergy to other foods; Z88.0 Allergy status to penicillin; Z88.1 Allergy status to other antibiotic agents; Z88.2 Allergy status to sulfonamides; Z88.5 Allergy status to narcotic agent; Z91.041 Radiographic dye allergy status; Z91.030 Bee allergy status; Z79.1 Long term (current) use of non-steroidal anti-inflammatories (NSAID); Z79.899 Other long term (current) drug therapy; Z79.2 Long term (current) use of antibiotics
CPT/HCPCS: 36415; 70450; 70486; 71045; 72125; 74176; 80048; 80053; 81001; 82140; 83735; 83880; 84484; 85007; 85025; 93005; 96374; 96375; 99285; J0131; J1885

== ENCOUNTER 2023-11-01 16:51 | Inpatient (IN) | payer MEDICAID ==
[~2023-11-01] VITALS: Ht 170.2 cm; Wt 83.0 kg
[~2023-11-01 16:51] MED LIST changes: -CEPH-585 PO; +ONDA-243 PO; -ONDA4TAB12 PO
[2023-11-01 19:03] LABS: BILIRUBIN,URINE SMALL (Neg); CLARITY,URINE CLOUDY (Clear); COLOR,URINE YELLOW (Yellow); GLUCOSE, URINE NEGATIVE (Neg); KETONES,URINE TRACE mg/dl (Neg); LEUKOCYTE ESTERASE ,URINE MODERATE (Neg); NITRITES, URINE POSITIVE (Neg); OCCULT BLOOD,URINE NEGATIVE (Neg); PROTEIN,URINE NEGATIVE (Neg)
[2023-11-01] MEDS ORDERED: CLIN150C2 PO (19:06)
[2023-11-01 19:20] LABS: UA COLLECTION TYPE STRAIGHT CATH
[2023-11-01 19:22] LABS: BASOPHILS % (AUTO) 0.2 % (0-1); EOSINOPHILS % (AUTO) 0.2 % (0-6); HEMOGLOBIN 15.9 g/dl (12.0-16.0); LYMPHOCYTES # (AUTO) 0.8 X10'3 (1.1-4.8); MEAN CORPUSCULAR HEMOGLOBIN 33.4 PG (27.0-31.0); MEAN CORPUSCULAR HGB CONC 34.6 g/dL (33.0-36.5); MEAN CORPUSCULAR VOLUME 96.7 FL (78-98); MEAN PLATELET VOLUME 8.5 FL (7.4-10.4); MONOCYTES # (AUTO) 0.4 X10'3 (0-0.9); MONOCYTES % (AUTO) 6.6 % (2-12); NEUTROPHILS # (AUTO) 5.3 X10'3 (1.8-7.7); PLATELET COUNT 187 X10'3 (140-440); RED BLOOD COUNT 4.76 X10'6 (4.20-5.60); RED CELL DISTRIBUTION WIDTH 14.7 % (11.5-14.5); WHITE BLOOD COUNT 6.6 X10'3 (4.5-11.0)
[2023-11-01 19:23] LABS: BACTERIA,URINE 4+ /HPF (Neg); SQUAMOUS EPITHELIAL CELL,UR MODERATE /LPF (FEW); TRANSITIONAL EPI CELLS,URINE FEW /HPF
[2023-11-01 19:24] LABS: RBC,URINE 0-2 /HPF (0-2); WBC,URINE TNTC /HPF (0-4)
[2023-11-01 19:34] LABS: ANION GAP 5 (8-16); BLOOD UREA NITROGEN 26 MG/DL (7-18); BUN/CREATININE RATIO 29.9 (10.0-20.0); CALCIUM 9.8 MG/DL (8.5-10.1); CHLORIDE 100 MMOL/L (99-107); CREATININE 0.87 MG/DL (0.40-0.90); GLUCOSE 132 MG/DL (70-104); POTASSIUM 3.5 MMOL/L (3.5-5.1); SODIUM 136 MMOL/L (135-145); TOTAL CARBON DIOXIDE 30.6 MMOL/L (24-32); eGFR 67 ML/MIN
[2023-11-01] MEDS: normal saline 1000ml 1,000 ML IV ONE (19:41)
[2023-11-01] MEDS: CefTRIAXone 2gm/D5W 50ml BAG 50 ML IV ONE (20:55)
[2023-11-01] MEDS: nicotine 14mg patch - 24hr TD ONE (20:57)
[2023-11-01] MEDS: CefTRIAXone 2gm/D5W 50ml BAG 50 ML IV SCH (21:45)
[2023-11-01] MEDS: morphine 4 MG/ML inj SYRINge IV PRN (22:37)
[2023-11-01] MEDS: ondansetron/PF 4mg/2ml inj IV PRN (22:38)
[2023-11-01 22:40] VITALS: BP 161/83; PULSE 74; RESP 16; TEMP 98.7; O2SAT 100
[2023-11-01] MEDS: hydrALAZINE 20mg/ml inj. IV ONE (23:08)
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
--- NOTE | 2023-11-01 23:50 | NUR ---
2330: report received from ED RN Kiarra. 2350: Pt admitted to unit rm 4017. VS stable. Pt on 2L NC. Pt drowsy but arousable. Pt AOx2. Pt weak but follows commands. Pt not on tele. Pt incontinent of bowel and bladder. pt has a purewick. Unknown LBM due to pt's altered mental status. Unable to obtain home medications. Medical/Surgical history obtained from previous visits and old chart. Pt has multiple skin issues. Photos taken per protocol. WOCN to be consulted. Pt admitted for palliative/comfort care. pt has a 29g R AC SL'd. Pt on bedrest. Turn q2h. Call light within reach. Bed to lowest position.
[2023-11-02] VITALS (7 sets, daily range): BP systolic 120–154; BP diastolic 74–83; PULSE 69–96; RESP 16–17; TEMP 97.1–98.4; O2SAT 94–100
--- NOTE | 2023-11-02 06:24 | NUR ---
Problems reprioritized. Patient report given, questions answered & plan of care reviewed with BENOIT Gil.
--- NOTE | 2023-11-02 09:48 | NUR ---
Low fariba consult: Pt presents with a low fariba score of 11 per EMR. Per RN physical assessment pt has an abrasion to left elbow, abrasion to left knee/leg tejada, lesions to chest, and a pressure ulcer to sacrum/coccyx. Noted wound care has not been consulted at this time. Pt is on palliative/comfort care measures thus a nutrition intervention is not warranted at this time. Will continue to monitor and make recommendations as appropriate. Addendum: 11/02/23 at [address] Amended: Links added.
[2023-11-02] MEDS: LORazepam 1 MG tablet PO PRN (11:03)
--- NOTE | 2023-11-03 06:30 | NUR ---
Problems reprioritized. Patient report given, questions answered & plan of care reviewed with BENOIT Escobar.
--- NOTE | 2023-11-03 06:53 | NUR ---
Patient in room ORTHO 4017. I have received report from Shauna and had the opportunity to ask questions and assume patient care.
[2023-11-03 08:00] VITALS: RESP 16; O2SAT 96
[2023-11-03] MEDS: bisacodyl 10mg suppository rectal RC STA (15:11)
--- NOTE | 2023-11-03 18:14 | NUR ---
Problems reprioritized. Patient report given, questions answered & plan of care reviewed with
[2023-11-03] MEDS: polyethylene glycol 3350 17gm powd pack PO SCH (18:42)
[2023-11-03 22:00] VITALS: BP 128/74; PULSE 90; RESP 16; TEMP 97.2; O2SAT 97
[2023-11-04 08:00] VITALS: RESP 16; O2SAT 96
[2023-11-04 09:13] LABS: BASOPHILS % (AUTO) 0.3 % (0-1); EOSINOPHILS % (AUTO) 0.6 % (0-6); HEMATOCRIT 41.1 % (35.0-45.0); HEMOGLOBIN 14.2 g/dl (12.0-16.0); LYMPHOCYTES # (AUTO) 1.5 X10'3 (1.1-4.8); LYMPHOCYTES % (AUTO) 22.1 % (21-51); MEAN CORPUSCULAR HEMOGLOBIN 32.9 PG (27.0-31.0); MEAN CORPUSCULAR HGB CONC 34.6 g/dL (33.0-36.5); MEAN CORPUSCULAR VOLUME 95.1 FL (78-98); MEAN PLATELET VOLUME 8.6 FL (7.4-10.4); MONOCYTES # (AUTO) 0.8 X10'3 (0-0.9); MONOCYTES % (AUTO) 11.5 % (2-12); NEUTROPHILS # (AUTO) 4.4 X10'3 (1.8-7.7); NEUTROPHILS % (AUTO) 65.5 % (42-75); PLATELET COUNT 184 X10'3 (140-440); RED BLOOD COUNT 4.32 X10'6 (4.20-5.60); RED CELL DISTRIBUTION WIDTH 14.3 % (11.5-14.5); WHITE BLOOD COUNT 6.7 X10'3 (4.5-11.0)
[2023-11-04 09:17] LABS: ALANINE AMINOTRANSFERASE 29 U/L (12-78); ALBUMIN 3.3 G/DL (3.4-5.0); ALKALINE PHOSPHATASE 49 IU/L (46-116); ANION GAP 7 (8-16); ASPARTATE AMINO TRANSFERASE 27 U/L (10-37); BILIRUBIN,TOTAL 0.8 MG/DL (0.1-1.0); BLOOD UREA NITROGEN 11 MG/DL (7-18); BUN/CREATININE RATIO 18.3 (10.0-20.0); CHLORIDE 101 MMOL/L (99-107); GLUCOSE 131 MG/DL (70-104); POTASSIUM 3.5 MMOL/L (3.5-5.1); SODIUM 136 MMOL/L (135-145); TOTAL CARBON DIOXIDE 27.7 MMOL/L (24-32); TOTAL PROTEIN 6.7 G/DL (6.4-8.2); eCRCL 101 ML/MIN; eGFR > 90 ML/MIN
[2023-11-04 10:00] VITALS: BP 160/91; PULSE 70; RESP 16; TEMP 97.7; O2SAT 98
--- NOTE | 2023-11-04 11:12 | NUR ---
Pt is non compliant with repositioning to sides. Pt will turn herself on to her back, despite multiple teachings on importance of repositioning. Will keep turning pt per protocol.
[2023-11-04] MEDS: nicotine 14mg patch - 24hr TD SCH (11:58)
--- NOTE | 2023-11-04 18:49 | NUR ---
Problems reprioritized. Patient report given, questions answered & plan of care reviewed with
--- NOTE | 2023-11-04 19:04 | NUR ---
Patient in room ORTHO 4017. I have received report from DAVID LABOY AT 1820 and had the opportunity to ask questions and assume patient care.
[2023-11-04] MEDS: traZODone 50mg tablet PO SCH (19:45)
[2023-11-04 20:00] VITALS: RESP 16; O2SAT 97
[2023-11-04 22:00] VITALS: BP 128/91; PULSE 87; RESP 18; TEMP 96.8; O2SAT 96
--- NOTE | 2023-11-05 06:34 | NUR ---
Problems reprioritized. Patient report given, questions answered & plan of care reviewed with MAGDY LABOY.
[2023-11-05 08:00] VITALS: RESP 16; O2SAT 96
[2023-11-05 10:00] VITALS: BP 116/67; PULSE 107; RESP 20; TEMP 97.4; O2SAT 99
[2023-11-05 20:00] VITALS: RESP 16; O2SAT 96
[2023-11-05] MEDS ORDERED: acetaminophen 325mg tablet PO PRN (20:15)
[2023-11-05 22:00] VITALS: BP 141/97; PULSE 84; RESP 18; TEMP 98.3; O2SAT 97
[2023-11-06 06:00] VITALS: BP 138/91; PULSE 98; RESP 18; TEMP 98.7; O2SAT 98
[2023-11-06 08:05] VITALS: RESP 16
[2023-11-06 10:00] VITALS: BP 137/91; PULSE 101; RESP 14; TEMP 98.6; O2SAT 96
[2023-11-06] MEDS: docusate sod 100mg capsule PO ONE (19:21)
[2023-11-06 20:00] VITALS: RESP 18
[2023-11-06] MEDS: LORazepam 1 MG tablet PO PRN (21:47)
[2023-11-07] MEDS: morphine 4 MG/ML inj SYRINge IV PRN (05:58)
[2023-11-07 06:00] VITALS: BP 131/74; PULSE 82; RESP 14; TEMP 97.9; O2SAT 93
[2023-11-07 08:00] VITALS: RESP 14; O2SAT 93
[2023-11-07] MEDS: carbamide peroxide 15ml bottle EACH EAR SCH (11:40)
[2023-11-07] MEDS: metoclopramide 10mg tablet PO ONE (11:57)
--- NOTE | 2023-11-07 12:07 | NUR ---
Reviewed and agree with Patsy ROTH's assessment
--- NOTE | 2023-11-07 18:45 | NUR ---
Problems reprioritized. Patient report given, questions answered & plan of care reviewed with Ronel ROTH.
[2023-11-07 20:00] VITALS: RESP 16; O2SAT 95
--- NOTE | 2023-11-07 23:07 | NUR ---
GENERAL EXPEDITOR documentation: I have reviewed and agree with the assessments documented by Marilou Leon LVN.
[2023-11-08] MEDS: acetaminophen 325mg tablet PO PRN (02:34)
[2023-11-08 06:00] VITALS: BP 120/75; PULSE 86; RESP 18; TEMP 99.2; O2SAT 96
--- NOTE | 2023-11-08 06:30 | NUR ---
Patient in room ORTHO 4017. I have received report from Ronel ROTH and had the opportunity to ask questions and assume patient care.
[2023-11-08] MEDS: pantoprazole 40mg Tablet.DR PO SCH (07:24)
[2023-11-08 08:00] VITALS: RESP 18; O2SAT 96
[2023-11-08 10:00] VITALS: BP 137/87; PULSE 90; RESP 14; TEMP 97.8; O2SAT 96
[2023-11-08] MEDS: LidoCAINE 2% Topical Jelly 11mL syringe (UROJET) TOP ONE (11:00)
[2023-11-08] MEDS ORDERED: acetaminophen 325mg tablet PO PRN (11:00)
[2023-11-08] MEDS: morphine 10mg/ml inj. IV PRN (11:37)
--- NOTE | 2023-11-08 16:28 | NUR ---
Patient daughter Sunshine called and wanted an update on her mother. Per Patient okay to talk to Sunshine. I gave her an update on patient and she will be here in the morning to talk to the MD, SS and CM.
--- NOTE | 2023-11-08 17:12 | NUR ---
Reviewed and agree with Patsy ROTH's assessment
--- NOTE | 2023-11-08 18:36 | NUR ---
Problems reprioritized. Patient report given, questions answered & plan of care reviewed with Govind LABOY.
[2023-11-08] MEDS: docusate sod 100mg capsule PO SCH (19:44)
[2023-11-08] MEDS: sennosides/docusate sodium tablet PO SCH (19:44)
[2023-11-09 06:00] VITALS: BP 153/85; PULSE 101; RESP 16; TEMP 99.1; O2SAT 94
--- NOTE | 2023-11-09 06:05 | NUR ---
Patient in room ORTHO 4017. I have received report from Govind LABOY and had the opportunity to ask questions and assume patient care.
--- NOTE | 2023-11-09 06:12 | NUR ---
Problems reprioritized. Patient report given, questions answered & plan of care reviewed with GONZALEZ Cosby.
[2023-11-09 08:00] VITALS: RESP 16; O2SAT 94
[2023-11-09 10:00] VITALS: BP 144/73; PULSE 112; RESP 18; TEMP 98.9; O2SAT 96
[2023-11-09] MEDS: LORazepam 2 mg/ml vial IV PRN (14:42)
--- NOTE | 2023-11-09 15:18 | NUR ---
Patient status has changed. Patient was able to talk, eat and drink yesterday. This AM she was able to eat breakfast and drink water. Patient is less talkative this afternoon and didn't want to eat lunch. I called patient daughter and cousin to update. Visiting hours now have extended for family and friends to visit. Security is aware of this.
--- NOTE | 2023-11-09 17:14 | NUR ---
MATERIAL PROCESSOR documentation: I have reviewed and agree with all interventions, assessments performed and documented by Alea ROTH; care plan reviewed/discussed/updated as needed.
[2023-11-09 18:00] VITALS: BP 133/79; PULSE 104; RESP 14; TEMP 98.1; O2SAT 99
--- NOTE | 2023-11-09 18:02 | NUR ---
patient is awake and was able to talk to her daughter.
[2023-11-09] MEDS ORDERED: acetaminophen 325mg tablet PO ONE (18:10)
--- NOTE | 2023-11-09 18:25 | NUR ---
Problems reprioritized. Patient report given, questions answered & plan of care reviewed with Govind LABOY.
[2023-11-09 20:00] VITALS: RESP 16; O2SAT 100
[2023-11-09 22:00] VITALS: BP 144/91; PULSE 72; RESP 16; TEMP 98.8; O2SAT 100
--- NOTE | 2023-11-10 06:40 | NUR ---
Patient in room ORTHO 4017. I have received report from desiree and had the opportunity to ask questions and assume patient care.
[2023-11-10 08:00] VITALS: RESP 16; O2SAT 94
--- NOTE | 2023-11-10 09:46 | NUR ---
F/u 11/09: Pt remains palliative/comfort care per EMR. LBM 11/04 receiving routine colace and senna per EMR. Will continue to follow per comfort measures. Rec: 1. continue MM5 diet as appropriate per physician 2. routine bowel regimen Addendum: 11/10/23 at [address] Amended: Links added.
[2023-11-10 10:00] VITALS: BP 157/76; PULSE 95; RESP 15; TEMP 97.8; O2SAT 93
--- NOTE | 2023-11-10 16:08 | NUR ---
HOMEOPATHIC DOCTOR documentation: I have reviewed and agree with all interventions, assessments performed and documented by Alea ROTH; care plan reviewed/discussed/updated.
--- NOTE | 2023-11-10 18:24 | NUR ---
Patient in room ORTHO 4017. I have received report from Alea ROTH and had the opportunity to ask questions and assume patient care.
--- NOTE | 2023-11-10 18:29 | NUR ---
Problems reprioritized. Patient report given, questions answered & plan of care reviewed with Leticia LABOY.
[2023-11-10 20:00] VITALS: RESP 16; O2SAT 94
[2023-11-10 22:00] VITALS: BP 144/90; PULSE 91; RESP 18; TEMP 98.6; O2SAT 95
[2023-11-11] MEDS: morphine 10mg/0.5ml (conc. morphine) oral syringe PO PRN (00:16)
--- NOTE | 2023-11-11 06:40 | NUR ---
Problems reprioritized. Patient report given, questions answered & plan of care reviewed with JERMAINE LABOY.
[2023-11-11 10:00] VITALS: BP 168/78; PULSE 127; RESP 18; TEMP 98.4; O2SAT 97
[2023-11-11] MEDS: amLODIPine 5mg tablet PO SCH (15:00)
--- NOTE | 2023-11-11 18:25 | NUR ---
Report given to Daya LABOY, pt resting comfortably at this time, roxinol given per shift change and patient with my assist ate a smaller portion of her dinner tray
--- NOTE | 2023-11-11 18:55 | NUR ---
Patient in room ORTHO 4017. I have received report from JERMAINE LABOY and had the opportunity to ask questions and assume patient care.
[2023-11-11 20:00] VITALS: RESP 16; O2SAT 95
[2023-11-11 22:00] VITALS: BP 145/7; PULSE 86; RESP 20; TEMP 98.9; O2SAT 95
--- NOTE | 2023-11-12 06:34 | NUR ---
Problems reprioritized. Patient report given, questions answered & plan of care reviewed with VIDHI LABOY.
--- NOTE | 2023-11-12 06:35 | NUR ---
Patient in room ORTHO 4017. I have received report from Daya LABOY and had the opportunity to ask questions and assume patient care.
[2023-11-12] MEDS ORDERED: amLODIPine 5mg tablet PO PRN (11:10)
--- NOTE | 2023-11-12 11:54 | NUR ---
ACQUISITION LEAD documentation: I have reviewed assessments performed and documented by Valeria ROTH.
[2023-11-12 18:00] VITALS: BP 129/74; PULSE 58; RESP 18; TEMP 97.4; O2SAT 97
--- NOTE | 2023-11-12 18:24 | NUR ---
Problems reprioritized. Patient report given, questions answered & plan of care reviewed with Lm ROTH.
[2023-11-12] MEDS: docusate sodium 100mg/10ml UD cup PO SCH (19:41)
[2023-11-12 22:00] VITALS: BP 123/60; PULSE 75; RESP 14; TEMP 97.6; O2SAT 98
--- NOTE | 2023-11-13 03:19 | NUR ---
RN performed own assessment, RN reviewed STRIPPER SOFT PLASTIC assessment. STRIPPER SOFT PLASTIC is primary nurse.
[2023-11-13 06:00] VITALS: BP 144/86; PULSE 101; RESP 16; TEMP 97; O2SAT 97
--- NOTE | 2023-11-13 06:20 | NUR ---
Patient in room ORTHO 4017. I have received report from Lm ROTH and had the opportunity to ask questions and assume patient care.
--- NOTE | 2023-11-13 06:38 | NUR ---
Problems reprioritized. Patient report given, questions answered & plan of care reviewed with Henny ROTH.
[2023-11-13 08:00] VITALS: RESP 16; O2SAT 97
--- NOTE | 2023-11-13 14:07 | NUR ---
Reviewed and agree with Patsy ROTH's assessment
--- NOTE | 2023-11-13 18:27 | NUR ---
Problems reprioritized. Patient report given, questions answered & plan of care reviewed with Javy RN.
[2023-11-14 06:00] VITALS: BP 137/76; PULSE 88; RESP 15; TEMP 96.9; O2SAT 98
--- NOTE | 2023-11-14 06:05 | NUR ---
Patient in room ORTHO 4017. I have received report from Javy LABOY and had the opportunity to ask questions and assume patient care.
--- NOTE | 2023-11-14 06:18 | NUR ---
Problems reprioritized. Patient report given, questions answered & plan of care reviewed with Alea ROTH.
[2023-11-14 08:00] VITALS: RESP 15; O2SAT 98
[2023-11-14] MEDS: LORazepam 1 MG tablet PO PRN (09:34)
[2023-11-14 10:00] VITALS: BP 144/69; PULSE 110; RESP 17; TEMP 98.7; O2SAT 93
--- NOTE | 2023-11-14 10:51 | NUR ---
Reviewed and agree with Patsy ROTH's assessment
--- NOTE | 2023-11-14 18:07 | NUR ---
Problems reprioritized. Patient report given, questions answered & plan of care reviewed with Javy RN.
[2023-11-15 06:00] VITALS: BP 153/74; PULSE 96; RESP 16; TEMP 97; O2SAT 96
--- NOTE | 2023-11-15 06:32 | NUR ---
Problems reprioritized. Patient report given, questions answered & plan of care reviewed with BENOIT Haynes.
[2023-11-15 08:00] VITALS: RESP 16; O2SAT 96
--- NOTE | 2023-11-15 09:54 | NUR ---
Reviewed and agree with Ivy ROTH's assessment
[2023-11-15 10:00] VITALS: BP 142/75; PULSE 92; RESP 18; TEMP 97.9; O2SAT 96
[2023-11-15 20:00] VITALS: RESP 16; O2SAT 96
[2023-11-15 22:00] VITALS: BP 126/87; PULSE 100; RESP 16; TEMP 97.8; O2SAT 96
--- NOTE | 2023-11-15 22:20 | NUR ---
GONZALEZ documentation: I have reviewed and agree with the assessments documented by Levy Guidry LVN.
--- NOTE | 2023-11-16 06:22 | NUR ---
Problems reprioritized. Patient report given, questions answered & plan of care reviewed with Ivy ROTH.
[2023-11-16 10:00] VITALS: BP 177/85; PULSE 120; RESP 20; TEMP 98.4; O2SAT 100
[2023-11-16 14:46] LABS: BILIRUBIN,URINE NEGATIVE (Neg); CLARITY,URINE CLOUDY (Clear); COLOR,URINE YELLOW (Yellow); GLUCOSE, URINE NEGATIVE (Neg); KETONES,URINE TRACE mg/dl (Neg); LEUKOCYTE ESTERASE ,URINE MODERATE (Neg); NITRITES, URINE NEGATIVE (Neg); OCCULT BLOOD,URINE SMALL (Neg); PH,URINE 8.5 (4.8-8.0); PROTEIN,URINE >=300 mg/dl (Neg); UROBILINOGEN,URINE 0.2 E.U/dL (0.2-1.0)
[2023-11-16 14:59] LABS: UA COLLECTION TYPE FOLEY CATH
[2023-11-16 15:01] LABS: BACTERIA,URINE 2+ /HPF (Neg); SQUAMOUS EPITHELIAL CELL,UR FEW /LPF (FEW)
--- NOTE | 2023-11-16 16:57 | NUR ---
DAY TREATMENT CLINICIAN/ART THERAPIST documentation: I have reviewed and agree with all interventions, assessments performed and documented by Ivy ROTH; care plan reviewed/discussed/updated.
[2023-11-16] MEDS: levoFLOXACIN-Levaquin 500mg/D5 100 ML IV SCH (17:33)
--- NOTE | 2023-11-16 17:41 | NUR ---
patient UA sent out and resulted positive for DAYLIN. Patient now on Levaquin 500 MG IV and tolerating it. turned every two hours and administered Roxanol for comfort measures. will report to night nurse.
[2023-11-16 22:39] VITALS: BP 93/47; PULSE 88; RESP 16; TEMP 96.9; O2SAT 96
--- NOTE | 2023-11-17 06:46 | NUR ---
patient report received. no changes through the night patient resting comfortably.
[2023-11-17 10:00] VITALS: BP 124/79; PULSE 118; RESP 16; TEMP 98.1; O2SAT 96
--- NOTE | 2023-11-17 10:30 | NUR ---
NET UI DEVELOPER documentation: I have reviewed and agree with all interventions, assessments performed and documented by Ivy ROTH; care plan reviewed/discussed/updated as needed.
--- NOTE | 2023-11-17 15:38 | NUR ---
PRESSURE ULCER EDUCATION: DEFINITION: A pressure ulcer is an area of skin that breaks down when you stay in one position too long. The constant pressure against the skin reduces the blood flow to that area and the affected tissue dies. CAUSES: "Being bedridden or in a wheelchair "Fragile skin "Having a chronic condition, such as diabetes or vascular disease "Inability to move certain parts of your body without assistance "Older age "Incontinence of urine or stool SYMPTOMS: "A reddened area that DOES NOT turn white when pressed on - this can be the beginning of a pressure ulcer "A blister, deep sore or a crater - these can be advanced pressure ulcers FIRST AID: "Relieve the pressure on this area "Keep the area clean and dry "Call your primary doctor if you see any of the above symptoms "DO NOT massage the area "DO NOT use a donut shaped or ring shaped pillow- these actually interfere with the blood flow and cause complications PREVENTION: "Check for pressure ulcers everyday "Change position at least every two hours to relieve pressure "Use items that help relieve pressure- pillows, sheepskin, foam padding, and powders. "Keep skin clean and dry "Eat healthy well balanced meals "Exercise daily IF YOU SEE ANY OF THESE SYMPTOMS WHILE IN THE HOSPITAL - TELL YOUR NURSE IMMEDIATELY. IF YOU SEE ANY OF THESE SYMPTOMS WHILE AT HOME OR HAVE ANY QUESTIONS OR CONCERNS ABOUT PRESSURE ULCERS - CALL YOUR PRIMARY DOCTOR IMMEDIATELY. Addendum: 11/17/23 at 1539 by Terra Flowers RN Amended: Links added.
--- NOTE | 2023-11-17 18:55 | NUR ---
Patient in room ORTHO 4017. I have received report from GONZALEZ ROMERO and had the opportunity to ask questions and assume patient care. Addendum: 11/17/23 at 1856 by Shayy Tang RN Amended: Links added.
[2023-11-17 20:00] VITALS: RESP 18; O2SAT 97
[2023-11-17 22:00] VITALS: BP 112/63; PULSE 82; RESP 18; TEMP 97.5; O2SAT 97
--- NOTE | 2023-11-18 00:45 | NUR ---
pt medicated by charge loader with roxanol and skin care done on pt and ear wax med was done after reciving it from the pharmacy.
--- NOTE | 2023-11-18 04:00 | NUR ---
pt medicated with roxinol for pain
--- NOTE | 2023-11-18 06:30 | NUR ---
Patient in room ORTHO 4017. I have received report from BENOIT Lucas and had the opportunity to ask questions and assume patient care.
--- NOTE | 2023-11-18 06:57 | NUR ---
Problems reprioritized. Patient report given, questions answered & plan of care reviewed with BENOIT SAHNI. Addendum: 11/18/23 at 0658 by Shayy Tang RN Amended: Links added.
[2023-11-18] MEDS: polyethylene glycol 3350 17gm powd pack PO PRN (08:57)
[2023-11-18 10:00] VITALS: BP 153/74; PULSE 91; RESP 16; TEMP 98.2; O2SAT 94
--- NOTE | 2023-11-18 15:47 | NUR ---
Problems reprioritized. Patient report given, questions answered & plan of care reviewed with BENOIT Mcclellan.
[2023-11-18 17:31] VITALS: RESP 16
[2023-11-18 18:00] VITALS: BP 159/64; PULSE 91; RESP 18; TEMP 98.2; O2SAT 98
--- NOTE | 2023-11-18 18:27 | NUR ---
Problems reprioritized. Patient report given, questions answered & plan of care reviewed with Daya LABOY.
[2023-11-18 20:00] VITALS: RESP 18; O2SAT 98
--- NOTE | 2023-11-19 06:29 | NUR ---
Problems reprioritized. Patient report given, questions answered & plan of care reviewed with CARMEN LABOY.
[2023-11-19 10:00] VITALS: BP 166/50; PULSE 89; RESP 18; TEMP 97.5; O2SAT 96
[2023-11-19 20:00] VITALS: RESP 16; O2SAT 98
[2023-11-19 22:00] VITALS: BP 144/85; PULSE 63; RESP 14; TEMP 95.3; O2SAT 96
--- NOTE | 2023-11-20 06:01 | NUR ---
ENTERPRISE RESOURCE PLANNER documentation: I have reviewed and agree with all interventions, assessments performed and documented by Lm ROTH.
--- NOTE | 2023-11-20 06:36 | NUR ---
Problems reprioritized. Patient report given, questions answered & plan of care reviewed with Eleuterio RN.
[2023-11-20 06:43] VITALS: BP 148/88; PULSE 79; RESP 14; TEMP 98; O2SAT 99
--- NOTE | 2023-11-20 06:49 | NUR ---
Patient in room ORTHO 4017. I have received report from Lm LABOY and had the opportunity to ask questions and assume patient care.
[2023-11-20 08:00] VITALS: RESP 16
--- NOTE | 2023-11-20 14:33 | NUR ---
Reassessment 11/19: Pt remains palliative/comfort care per EMR. LBM 11/18 receiving routine colace and senna per EMR. Will continue to follow per Rec: 1. continue MM5 diet as appropriate per physician 2. routine bowel regimen Addendum: 11/20/23 at [address] Amended: Links added.
--- NOTE | 2023-11-20 18:54 | NUR ---
Problems reprioritized. Patient report given, questions answered & plan of care reviewed with Ronel LABOY.
[2023-11-20 20:00] VITALS: RESP 16
--- NOTE | 2023-11-20 23:50 | NUR ---
RUBBER STAMP ASSEMBLER documentation: I have reviewed and agree with the assessments documented by Marilou Leon LVN.
[2023-11-21 08:00] VITALS: RESP 16; O2SAT 96
[2023-11-21 10:00] VITALS: BP 124/78; PULSE 76; RESP 16; TEMP 97.3; O2SAT 96
--- NOTE | 2023-11-21 16:45 | NUR ---
Reviewed and agree with Ivy ROTH's assessment
[2023-11-21 22:00] VITALS: BP 139/82; PULSE 92; RESP 16; TEMP 96.3; O2SAT 99
--- NOTE | 2023-11-22 05:24 | NUR ---
agree with assessment Addendum: 11/22/23 at 5339 by Luisana Smith RN Amended: Links added.
--- NOTE | 2023-11-22 05:25 | NUR ---
agree with assessment Addendum: 11/22/23 at 1172 by Luisana Smith RN Amended: Links added.
[2023-11-22 08:00] VITALS: RESP 17; O2SAT 98
--- NOTE | 2023-11-22 11:31 | NUR ---
Reviewed and agree with Ivy ROTH's assessment
[2023-11-22 18:00] VITALS: BP 121/85; PULSE 104; RESP 18; TEMP 98.5; O2SAT 98
[2023-11-22 20:00] VITALS: RESP 17; O2SAT 98
[2023-11-22 22:00] VITALS: RESP 17; O2SAT 98
[2023-11-23 06:00] VITALS: BP 143/111; PULSE 83; RESP 16; TEMP 98.5; O2SAT 97
--- NOTE | 2023-11-23 06:30 | NUR ---
Patient in room ORTHO 4017. I have received report from Ginger LABOY and had the opportunity to ask questions and assume patient care.
[2023-11-23 08:00] VITALS: RESP 16; O2SAT 97
--- NOTE | 2023-11-23 12:53 | NUR ---
Reviewed and agree with Alea ROTH's assessment
--- NOTE | 2023-11-23 18:20 | NUR ---
Problems reprioritized. Patient report given, questions answered & plan of care reviewed with Fidel LABOY.
--- NOTE | 2023-11-23 18:30 | NUR ---
Patient in room ORTHO 4017. I have received report from EMMIE ROTH and had the opportunity to ask questions and assume patient care.
[2023-11-23 20:00] VITALS: RESP 18; O2SAT 96
[2023-11-23 22:00] VITALS: BP 144/81; PULSE 85; RESP 16; TEMP 98.7; O2SAT 99
--- NOTE | 2023-11-24 06:39 | NUR ---
Problems reprioritized. Patient report given, questions answered & plan of care reviewed with STEFFEN ROTH.
[2023-11-24 08:00] VITALS: RESP 16; O2SAT 95
[2023-11-24 10:00] VITALS: BP 186/81; PULSE 90; RESP 20; TEMP 97.8; O2SAT 97
--- NOTE | 2023-11-24 16:24 | NUR ---
WEB APPLICATIONS DEVELOPER documentation: I have reviewed and agree with all interventions, assessments performed and documented by Jamison ROTH; care plan reviewed/discussed/updated.
--- NOTE | 2023-11-24 18:25 | NUR ---
Problems reprioritized. Patient report given, questions answered & plan of care reviewed with GONZALEZ Douglas.
[2023-11-24 22:00] VITALS: BP 155/89; PULSE 76; RESP 16; TEMP 97.3; O2SAT 96
--- NOTE | 2023-11-25 05:25 | NUR ---
GONZALEZ documentation: I have reviewed and agree with all interventions, assessments performed and documentation by Misael ROTH.
--- NOTE | 2023-11-25 06:12 | NUR ---
report to Jamison ROTH
[2023-11-25 08:00] VITALS: RESP 16; O2SAT 97
--- NOTE | 2023-11-25 10:25 | NUR ---
Pt stable for transfer. Patient IV d/c prior to d/c. Patient left with all personal belongings. daughter present at time of d/c. Daughter took pt's bracelet prior to transfer requested from transport. [facility] personnel arrived and loaded patient onto [facility], patient loaded into [facility] for transfer to [facility].
--- NOTE | 2023-11-25 11:03 | NUR ---
CHEMISTRY SPECIALIST documentation: I have reviewed and agree with all interventions, assessments performed and documented by Jamison ROTH; care plan reviewed/discussed/updated as needed.
== END 2023-11-25 10:10 | disposition hospice, inpatient (51) | DRG 52 ==
LOC: ER 16:52 → ED HOLD 21:36 → ORTHO 4S 23:40
PROVIDERS: ADMIT Internal Medicine Critical Care Medicine; ATTEND Internal Medicine
DX: G93.41 Metabolic encephalopathy (principal); L89.159 Pressure ulcer of sacral region, unspecified stage; C79.31 Secondary malignant neoplasm of brain; E11.42 Type 2 diabetes mellitus with diabetic polyneuropathy; N39.0 Urinary tract infection, site not specified; I10 Essential (primary) hypertension; F32.A Depression, unspecified; F41.9 Anxiety disorder, unspecified; G89.29 Other chronic pain; K21.9 Gastro-esophageal reflux disease without esophagitis; M54.9 Dorsalgia, unspecified; Z66 Do not resuscitate; K08.89 Other specified disorders of teeth and supporting structures; Z88.1 Allergy status to other antibiotic agents; Z88.5 Allergy status to narcotic agent; Z88.0 Allergy status to penicillin; Z88.2 Allergy status to sulfonamides; Z88.8 Allergy status to other drugs, medicaments and biological substances; Z91.018 Allergy to other foods; Z51.5 Encounter for palliative care
CPT/HCPCS: 36415; 71045; 74018; 80048; 80053; 81001; 82948; 83605; 84145; 85025; 87040; 87077; 87081; 87088; 87186; 87811; 93005; 96361; 96365; 97110; 97162; 99285; A4314; A4615; A4649; A5200; A6196; A6212; A6213; A6223; A6250; A6253; A6446; A6449; G0378; J0360; J0696; J1956; J2060; J2270; J2274; J2405; J7030; J7040